=== PATIENT | female | born 1980 | race Caucasian/White ===

== ENCOUNTER 2017-09-19 21:38 | Emergency (ER) | payer BC ==
[2017-09-19 22:22] LABS: Absolute Lymphocytes (CBC) 3.9 K/uL (0.7-4.9); Absolute Monocytes 0.8 K/uL (0.1-1.3); Absolute Neutrophil 7.2 K/uL (1.8-8.0); Basophils % 0.4 % (0-1.3); Eosinophils % 1.1 % (0-4.4); Lymphocytes % 32.4 % (15.3-44.8); MCH 30.8 pg (27.0-35.0); MCV 89.6 fL (80-100); MPV 9.2 fL (7.6-11.3); Monocytes % 6.8 % (3.3-12.3); RBC Red Blood Cell Count 4.46 M/uL (3.86-4.86)
[2017-09-19 22:27] LABS: Protime INR 1.02
[2017-09-19 22:46] LABS: ALT/SGPT 26 U/L (12-78); AST/SGOT 13 U/L (15-37); Albumin 3.8 g/dL (3.4-5.0); Alkaline Phosphatase 74 U/L (45-117); BUN Blood Urea Nitrogen 10 mg/dL (7-18); Bicarbonate 24 mmol/L (21-32); Bilirubin Direct < 0.1 mg/dL (0-0.2); Bilirubin Total 0.4 mg/dL (0.2-1.0); CKMB Creatine Kinase MB < 1.0 ng/mL (0.3-3.6); Creatine Phosphokinase 31 U/L (26-192); Glucose Level 94 mg/dL (74-106); Lipase 110 U/L (73-393); Magnesium 2.2 mg/dL (1.8-2.4); NT PRO-BNP 28 pg/mL (<125); Potassium 3.6 mmol/L (3.5-5.1); Protein, Total 7.3 g/dL (6.4-8.2); Sodium Level 139 mmol/L (136-145)
--- NOTE | 2017-09-20 00:03 | EDPHYS ---
Physician Documentation [facility] Name: Kristie Alarcon Age: 36 yrs Sex: Female : 1980 Arrival Date: 09/19/2017 Time: 21:42 Bed 7 Private MD: Angel De Anda T ED Physician Jackson Dyson HPI: 09/19 22:00 This 36 yrs old Female presents to ER via Ambulatory with complaints of Chest pm1 Pain. 22:00 The patient or guardian reports chest pain that is located primarily in the xyphoid pm1 area. 22:00 The pain radiates to back. Associated signs and symptoms: Pertinent negatives: pm1 abdominal pain, cough, diaphoresis, dizziness, nausea, palpitations, shortness of breath, vomiting. The chest pain is described as aching. Duration: The patient or guardian reports multiple episodes, that have now resolved. Modifying factors: The symptoms are alleviated by nothing. the symptoms are aggravated by palpation of area. Severity of pain: in the emergency department the pain has resolved. The patient has been recently seen by a physician: carpal tunnel surgery on the . Historical: - Allergies: 21:58 No Known Allergies; aa1 - Home Meds: 21:58 None [Active]; aa1 - PMHx: 21:58 None; aa1 - PSHx: 21:58 Carpal Tunnel Repair; Cholecystectomy; surgery for ectopic ; aa1 - Immunization history:: Flu vaccine is up to date. - Social history:: Smoking status: Patient uses tobacco products, currently quitting. - Ebola Screening: : No symptoms or risks identified at this time. ROS: 22:00 Constitutional: Negative for fever, chills, and weight loss, Eyes: Negative for injury, pm1 pain, redness, and discharge, ENT: Negative for injury, pain, and discharge, Neck: Negative for injury, pain, and swelling. 22:00 Respiratory: Negative for shortness of breath, cough, wheezing, and pleuritic chest pain, Abdomen/GI: Negative for abdominal pain, nausea, vomiting, diarrhea, and constipation, Back: Negative for injury and pain, : Negative for injury, bleeding, discharge, and swelling, MS/Extremity: Negative for injury and deformity, Skin: Negative for injury, rash, and discoloration, Neuro: Negative for headache, weakness, numbness, tingling, and seizure. 22:00 Cardiovascular: Positive for chest pain, Negative for edema, orthopnea, palpitations. Exam: 22:00 Constitutional: This is a well developed, well nourished patient who is awake, alert, pm1 and in no acute distress. Head/Face: Normocephalic, atraumatic. 22:00 Cardiovascular: Regular rate and rhythm with a normal S1 and S2. No gallops, murmurs, or rubs. Normal PMI, no JVD. No pulse deficits. Respiratory: Lungs have equal breath sounds bilaterally, clear to auscultation and percussion. No rales, rhonchi or wheezes noted. No increased work of breathing, no retractions or nasal flaring. Abdomen/GI: Soft, non-tender, with normal bowel sounds. No distension or tympany. No guarding or rebound. No evidence of tenderness throughout. Back: No spinal tenderness. No costovertebral tenderness. Full range of motion. Skin: Warm, dry with normal turgor. Normal color with no rashes, no lesions, and no evidence of cellulitis. MS/ Extremity: Pulses equal, no cyanosis. Neurovascular intact. Full, normal range of motion. 22:00 Chest/axilla: Inspection: normal, Palpation: tenderness, that is mild, of the xyphoid area, that totally reproduces the patient's complaints. 22:00 Neuro: Orientation: is normal, Motor: moves all fours. Vital Signs: 21:58 BP 146 / 87; Pulse 78; Resp 16; Temp 98.7(O); Pulse Ox 99% on R/A; Weight 56.7 kg; aa1 Height 5 ft. 2 in. (157.48 cm); Pain 0/10; 22:46 Pulse 88; Resp 18; Pulse Ox 98% on R/A; tl2 09/20 00:00 BP 126 / 89; Pulse 75; Resp 16; Pulse Ox 99% on R/A; Pain 0/10; lp1 09/19 21:58 Body Mass Index 22.86 (56.70 kg, 157.48 cm) aa1 MDM: 09/19 21:47 Patient medically screened. pm1 22:00 ED course: Patient refused pain medications offered. pm1 09/20 00:02 Data reviewed: vital signs. pm1 00:02 Counseling: I had a detailed discussion with the patient and/or guardian regarding: the pm1 historical points, exam findings, and any diagnostic results supporting the discharge/admit diagnosis, lab results, radiology results, the need for outpatient follow up, to return to the emergency department if symptoms worsen or persist or if there are any questions or concerns that arise at home, smoking cessation. 09/19 21:58 Order name: Basic Metabolic Panel; Complete Time: 22:56 pm09/19 21:58 Order name: CBC with Diff; Complete Time: 22:37 pm09/19 21:58 Order name: Ckmb; Complete Time: 22:56 pm09/19 21:58 Order name: CPK; Complete Time: 22:56 pm09/19 21:58 Order name: LFT's; Complete Time: 22:56 pm09/19 21:58 Order name: Magnesium; Complete Time: 22:56 pm09/19 21:58 Order name: NT PRO-BNP; Complete Time: 22:56 pm09/19 21:58 Order name: PT-INR; Complete Time: 22:37 pm09/19 21:58 Order name: Ptt, Activated; Complete Time: 22:37 pm09/19 21:58 Order name: Troponin (emerg Dept Use Only); Complete Time: 22:56 pm09/19 21:58 Order name: D-Dimer; Complete Time: 22:37 pm09/19 22:22 Order name: Lipase; Complete Time: 22:56 EDDE 09/20 00:03 Order name: Urine Dipstick--Ancillary (enter results) ms 09/19 21:58 Order name: Urine Test (obtain specimen); Complete Time: 23:55 pm09/19 21:58 Order name: XRAY Chest (1 view) pm09/19 21:58 Order name: EKG; Complete Time: 21:58 pm09/19 21:58 Order name: Cardiac monitoring; Complete Time: 22:14 pm09/19 21:58 Order name: EKG - Nurse/Tech; Complete Time: 22:14 pm09/19 21:58 Order name: IV Saline Lock; Complete Time: 22:01 pm09/19 21:58 Order name: Labs collected and sent; Complete Time: 22:01 pm09/19 21:58 Order name: O2 Per Protocol; Complete Time: 22:01 pm1 09/19 21:58 Order name: O2 Sat Monitoring; Complete Time: 22:01 pm1 09/19 21:58 Order name: Urine Dipstick-Ancillary (obtain specimen); Complete Time: 23:55 pm1 09/20 00:05 Order name: Urine --Ancillary (enter results) ms Administered Medications: No medications were administered Disposition: 09/20/17 00:02 Discharged to Home. Impression: Chest pain, unspecified. - Condition is Stable. - Discharge Instructions: Nonspecific Chest Pain. - Medication Reconciliation Form, Thank You Letter, Antibiotic Education, Prescription Opioid Use form. - Follow up: Emergency Department; When: As needed; Reason: Worsening of condition. Follow up: Private Physician; When: 2 - 3 days; Reason: Recheck today's complaints, Continuance of care, Re-evaluation by your physician. - Problem is new. - Symptoms have improved. Addendum: 09/21/2017 10:38 Co-signature as Attending Physician, Jackson Dyson MD I agree with the assessment and c kidd plan of care. Signatures: Dispatcher [employer] [facility] Usha Lord RN RN aa1 Jackson Dyson MD MD cha Pena, Laura, RN RN lp1 Francis Ruelas NP MANAGER FITNESS pm1 Corrections: (The following items were deleted from the chart) 09/19 22:21 22:06 LIPASE+C.LAB.BRZ ordered. [facility] 09/20 00:12 00:02 09/20/2017 00:02 Discharged to Home. Impression: Chest pain, unspecified. lp1 Condition is Stable. Discharge Instructions: Nonspecific Chest Pain. Forms are Medication Reconciliation Form, Thank You Letter, Antibiotic Education, Prescription Opioid Use. Follow up: Emergency Department; When: As needed; Reason: Worsening of condition. Follow up: Private Physician; When: 2 - 3 days; Reason: Recheck today's complaints, Continuance of care, Re-evaluation by your physician. Problem is new. Symptoms have improved. pm1
--- NOTE | 2017-09-20 00:03 | ER ---
Nurse's Notes [facility] Name: Kristie Alarcon Age: 36 yrs Sex: Female : 1980 Arrival Date: 09/19/2017 Time: 21:42 Bed 7 Private MD: Angel De Anda T Diagnosis: Chest pain, unspecified Presentation: 09/19 21:51 Presenting complaint: Patient states: she has been having int epigastric pain that aa1 radiates to back x 4 days. Reports pain is a sharp pain that is worse with deep inspiration. States she recently quit smoking and she also had carpal tunnel repair done 5 days ago and is unsure if either of those are related. Transition of care: patient was not received from another setting of care. Onset of symptoms was September 15, 2017. Risk Assessment: Do you want to hurt yourself or someone else? Patient reports no desire to harm self or others. Initial Sepsis Screen: Does the patient meet any 2 criteria? No. Patient's initial sepsis screen is negative. Does the patient have a suspected source of infection? No. Patient's initial sepsis screen is negative. Care prior to arrival: None. 21:51 Method Of Arrival: Ambulatory aa1 21:51 Acuity: FABIANA 3 aa1 Triage Assessment: 21:58 General: Appears in no apparent distress. comfortable, Behavior is calm, cooperative, aa1 appropriate for age. Historical: - Allergies: 21:58 No Known Allergies; aa1 - Home Meds: 21:58 None [Active]; aa1 - PMHx: 21:58 None; aa1 - PSHx: 21:58 Carpal Tunnel Repair; Cholecystectomy; surgery for ectopic ; aa1 - Immunization history:: Flu vaccine is up to date. - Social history:: Smoking status: Patient uses tobacco products, currently quitting. - Ebola Screening: : No symptoms or risks identified at this time. Screenin:51 Abuse screen: Denies threats or abuse. Denies injuries from another. Nutritional lp1 screening: No deficits noted. Tuberculosis screening: No symptoms or risk factors identified. Fall Risk None identified. Assessment: 21:50 General: Appears in no apparent distress. Behavior is calm, cooperative, appropriate lp1 for age. Pain: Complains of pain in epigastric area Pain currently is 5 out of 10 on a pain scale. Quality of pain is described as aching. Neuro: Level of Consciousness is awake, alert, obeys commands. Cardiovascular: Patient's skin is warm and dry. Respiratory: Respiratory effort is even, unlabored, Breath sounds are clear bilaterally. GI: Abdomen is non-distended, Bowel sounds present X 4 quads. Abd is soft and non tender X 4 quads. : No signs and/or symptoms were reported regarding the genitourinary system. EENT: No signs and/or symptoms were reported regarding the EENT system. Derm: Skin is pink, warm \T\ dry. Musculoskeletal: Circulation, motion, and sensation intact. 22:46 Reassessment: Patient appears in no apparent distress at this time. Patient and/or tl2 family updated on plan of care and expected duration. Pain level reassessed. Patient is alert, oriented x 3, equal unlabored respirations, skin warm/dry/pink. Pt denies needing any pain medication. awaiting lab results. 23:45 Reassessment: Patient appears in no apparent distress at this time. Patient is alert, lp1 oriented x 3, equal unlabored respirations, skin warm/dry/pink. Patient states feeling better. Vital Signs: 21:58 BP 146 / 87; Pulse 78; Resp 16; Temp 98.7(O); Pulse Ox 99% on R/A; Weight 56.7 kg; aa1 Height 5 ft. 2 in. (157.48 cm); Pain 0/10; 22:46 Pulse 88; Resp 18; Pulse Ox 98% on R/A; tl2 09/20 00:00 BP 126 / 89; Pulse 75; Resp 16; Pulse Ox 99% on R/A; Pain 0/10; lp1 09/19 21:58 Body Mass Index 22.86 (56.70 kg, 157.48 cm) aa1 ED Course: 09/19 21:42 Patient arrived in ED. es 21:42 Angel De Anda MD is Private Physician. es 21:46 Francis Ruelas NP is PHCP. pm1 21:47 Jackson Dyson MD is Attending Physician. pm1 21:50 Bushra Ballard RN is Primary Nurse. lp1 21:51 Patient has correct armband on for positive identification. Placed in gown. Bed in low lp1 position. Pulse ox on. NIBP on. 21:56 Triage completed. aa1 21:58 Arm band placed on right wrist. Patient placed in an exam room, on a stretcher. aa1 22:00 Inserted saline lock: 20 gauge in left antecubital area, using aseptic technique. Blood tl2 collected. 22:17 Initial lab(s) drawn, by me, sent to lab. EKG done, by ED staff, reviewed by Francis Ruelas NP. 22:32 XRAY Chest (1 view) In Process Unspecified. EDMS 09/20 00:04 No provider procedures requiring assistance completed. IV discontinued, No lp1 redness/swelling at site. Pressure dressing applied. Administered Medications: No medications were administered Outcome: 00:02 Discharge ordered by MD. pm1 00:11 Discharged to home ambulatory. lp1 00:11 Condition: good 00:11 Discharge instructions given to patient, Instructed on discharge instructions, follow up and referral plans. Demonstrated understanding of instructions, follow-up care. 00:12 Patient left the ED. lp1 Signatures: Dispatcher [employer] EDSD Usha Lord, RN RN aa1 Sayra Monique Laura RN RN lp1 Francis Ruelas NP INCUBATOR OPERATOR pm1 Eulalia Hayes RN RN tl2
[2017-09-20 00:08] LABS: Urine Specific Gravity >1.030 (1.005-1.030)
[2017-09-20 00:08] LABS: Urine Blood NEGATIVE (NEG); Urine Glucose NEGATIVE (NEG); Urine Protein NEGATIVE (NEG); Urine Specific Gravity >1.030 (1.005-1.030)
--- NOTE | 2017-09-20 07:39 | RAD REPORT ---
EXAM DESCRIPTION: RAD - Chest Single View - 09/19/2017 10:32 pm CLINICAL HISTORY: Back pain, chest pain COMPARISON: October 2013 TECHNIQUE: AP portable chest image was obtained 2222 hours . FINDINGS: Lungs are clear. Heart and vasculature are normal. No measurable pleural effusion and no p neumothorax. No gross bony abnormality seen. No acute aortic findings suspected. IMPRESSION: No acute cardiopulmonary process. No significant interval change.
--- NOTE | 2017-09-20 09:31 | EKG ---
Test Date: 2017-09-19 Test Time: 22:09:09 City Manager: CARRIE MEASUREMENT RESULTS: Intervals: Rate: 73 SD: 130 QRSD: 82 QT: 388 QTc: 427 [place]: P: 24 SD: 130 QRS: 14 T: 16 INTERPRETIVE STATEMENTS: Normal sinus rhythm Normal ECG Compared to ECG 11/05/2008 16:55:08 No significant changes Electronically Signed On 09-20-17 09:30:36 CDT by Nathan Encarnacion
== END 2017-09-20 00:12 | disposition home or self-care (01) ==
LOC: ER 21:38
DX: R07.9 Chest pain, unspecified (principal)
CPT/HCPCS: 36415; 71045; 80048; 80076; 81003; 81025; 82550; 82553; 83690; 83735; 83880; 84484; 85025; 85379; 85610; 85730; 93005; 99284

== ENCOUNTER 2018-10-03 12:03 | Emergency (ER) | payer BC ==
[2018-10-03] MEDS ORDERED: KETOROLAC 30 MG/ML INJ ONE (12:25)
[2018-10-03] MEDS ORDERED: ONDANSETRON 4 MG/2 ML VIAL ONE (12:25)
[2018-10-03] MEDS ORDERED: MORPHINE 4 MG/ML SYR ONE ×2 (12:25→13:43)
[2018-10-03] MEDS ORDERED: NA CHLORIDE 0.9% 1,000 ML ONE ×2 (12:26→13:43)
[2018-10-03 12:34] LABS: Absolute Lymphocytes (CBC) 2.7 K/uL (0.7-4.9); Basophils % 0.4 % (0-1.3); Hematocrit 42.7 % (36.0-45.0); Lymphocytes % 15.6 % (15.3-44.8); MPV 9.2 fL (7.6-11.3); RBC Red Blood Cell Count 4.69 M/uL (3.86-4.86)
[2018-10-03] MEDS ORDERED: CEFTRIAXONE/SWI 1gm 1 GM/10 ML SYR ONE (12:40)
[2018-10-03 12:41] LABS: Urine Blood 3+ (NEG); Urine Glucose NEGATIVE (NEG); Urine Protein 2+ (NEG); Urine Specific Gravity 1.015 (1.005-1.030); Urine pH 6.5 (5.0-7.0)
[2018-10-03 12:56] LABS: Albumin 4.2 g/dL (3.4-5.0); Bilirubin Direct 0.2 mg/dL (0-0.2); Bilirubin Total 0.8 mg/dL (0.2-1.0); Potassium 4.5 mmol/L (3.5-5.1)
--- NOTE | 2018-10-03 13:07 | RAD REPORT ---
EXAM DESCRIPTION: CT - Stone Protocol - 10/03/2018 12:46 pm CLINICAL HISTORY: Dysuria, left flank pain, chills and nausea COMPARISON: None. TECHNIQUE: Axial 5 mm thick images were obtained without oral or IV contrast. The [id number] span s the entirety of the system partially obscuring uppermost abdomen and lung bases. All CT scans are performed using dose optimization technique as appropriate and may include automated exposure control or mA/KV adjustment according to patient size. FINDINGS: No obstructing or nonobstructing calculi seen. There is mild dilatation of the left ureter in pelvis. Avalos of the ureter appear slightly thickened and there is a minimal amount of stranding along the course of the left ureter. No suspicious renal masses. Isodense masses and pyelonephritis a re not excluded on a stone protocol CT scan. Urinary bladder is contracted limiting detail. No bladde r calculus seen. No significant adrenal finding. Uterus and right ovary show no significant finding. Left ovary contains a 2.3 centimeter cyst. Imaged portions of the liver, spleen and pancreas show no suspicious findings on non-contrast imaging . Cholecystectomy clips are present. No biliary tree dilatation. No suspicious bowel findings. No appendicitis. No hernia, mass or bulky lymphadenopathy noted. Physiologic quantity of free fluid is seen in the cul de sac. No significant bony abnormality. IMPRESSION: Mild dilatation of the left ureter with edema and stranding present. Finding could refle ct a recently passed stone. Blood and inflammatory debris and ureter can cause dilatation. Ureteritis and pyelonephritis are certainly possible on a noncontrast study.
--- NOTE | 2018-10-03 13:33 | ER ---
Nurse's Notes [facility] Name: Kristie Alarcon Age: 37 yrs Sex: Female : 1980 Arrival Date: 10/03/2018 Time: 12:07 Bed 17 Private MD: Diagnosis: Hydronephrosis with renal and ureteral calculous obstruction;Other ovarian cysts Presentation: 10/03 12:21 Presenting complaint: Patient states: urinary frequency yesterday, left flank pain X 2 iw hours, c/o chills and nausea. Transition of care: patient was not received from another setting of care. Onset of symptoms was October 03, 2018. Risk Assessment: Do you want to hurt yourself or someone else? Patient reports no desire to harm self or others. Initial Sepsis Screen: Does the patient meet any 2 criteria? No. Patient's initial sepsis screen is negative. Does the patient have a suspected source of infection? No. Patient's initial sepsis screen is negative. Care prior to arrival: None. 12:21 Method Of Arrival: Ambulatory iw 12:21 Acuity: FABIANA 3 iw MILLWRIGHT SUPERVISOR: 12:23 LMP 09/21/2018 iw Historical: - Allergies: 12:23 No Known Allergies; iw - Home Meds: 12:23 None [Active]; iw - PMHx: 12:23 None; iw - PSHx: 12:23 Carpal Tunnel Repair; iw - Social history:: Smoking status: . - Ebola Screening: : Patient negative for fever greater than or equal to 101.5 degrees Fahrenheit, and additional compatible Ebola Virus Disease symptoms Patient denies exposure to infectious person Patient denies travel to an Ebola-affected area in the 21 days before illness onset No symptoms or risks identified at this time. - Family history:: not pertinent. Screenin:20 Abuse screen: Denies threats or abuse. Nutritional screening: No deficits noted. em Tuberculosis screening: No symptoms or risk factors identified. Fall Risk None identified. Assessment: 12:20 General: Appears in no apparent distress. uncomfortable, well groomed, well developed, em well nourished, Behavior is cooperative, restless, Denies fever. Pain: Complains of pain in posterior aspect of left lateral abdomen Pain radiates to left low back Pain currently is 10 out of 10 on a pain scale. Quality of pain is described as sharp, shooting, Pain began 1 day ago. Neuro: Level of Consciousness is awake, alert, obeys commands, Oriented to person, place, time, situation. Cardiovascular: Capillary refill < 3 seconds Patient's skin is warm and dry. Respiratory: Airway is patent Respiratory effort is even, unlabored, Respiratory pattern is regular, symmetrical. GI: Abdomen is flat, Bowel sounds present X 4 quads. Abd is soft and non tender X 4 quads. : Reports burning with urination. Derm: Skin is intact, is healthy with good turgor, Skin is pink, warm \T\ dry. Musculoskeletal: Capillary refill < 3 seconds, Range of motion: intact in all extremities. 13:03 Reassessment: Patient appears in no apparent distress at this time. Patient and/or em family updated on plan of care and expected duration. Pain level reassessed. Patient is alert, oriented x 3, equal unlabored respirations, skin warm/dry/pink. rates pain 4/10 Patient states feeling better. Patient states symptoms have improved. 13:30 Reassessment: reports pain is 8/10, provider notified, new medication orders received, em will hold flomax and cipro until US results per MD order. 15:04 Reassessment: Patient appears in no apparent distress at this time. Patient and/or em family updated on plan of care and expected duration. Pain level reassessed. Patient is alert, oriented x 3, equal unlabored respirations, skin warm/dry/pink. rates pain 4/10. 16:01 Reassessment: Patient appears in no apparent distress at this time. Patient and/or em family updated on plan of care and expected duration. Pain level reassessed. Patient is alert, oriented x 3, equal unlabored respirations, skin warm/dry/pink. rates pain 3/10. Vital Signs: 12:20 BP 150 / 100; Pulse 94; Resp 18; Temp 98.2; Pulse Ox 97% on R/A; Pain 10/10; em 13:07 BP 153 / 93; Pulse 81; Resp 16; Pulse Ox 100% on R/A; Pain 4/10; em 14:30 BP 130 / 88; Pulse 86; Resp 18; Pulse Ox 99% on R/A; Pain 8/10; em ED Course: 12:04 Jackson Dyson MD is Attending Physician. demetria 12:07 Patient arrived in ED. as 12:16 Lawson Navarro LVN is Primary Nurse. em 12:20 Patient has correct armband on for positive identification. Bed in low position. Call em light in reach. Adult w/ patient. Pulse ox on. NIBP on. 12:20 Initial lab(s) drawn, by me, sent to lab. Inserted saline lock: 22 gauge in right em antecubital area, using aseptic technique. Blood collected. 12:21 Radiology exam delayed due to test not completed at this time. mw3 12:22 Triage completed. iw 12:23 Arm band placed on. iw 12:33 Urine collected: clean catch specimen, cloudy, mateo colored. jb1 12:45 CT completed. Patient tolerated procedure well. Patient moved back from CT. mw3 12:46 CT Stone Protocol In Process Unspecified. EDMS 13:31 Livia Hickey MD is Referral Physician. demetria 14:40 Ultrasound completed. Patient tolerated well. sg3 14:42 US Transvaginal Study (Probe) In Process Unspecified. EDMS 16:00 No provider procedures requiring assistance completed. em 16:00 IV discontinued, intact, bleeding controlled, No redness/swelling at site. Pressure em dressing applied. Administered Medications: 12:30 Drug: Zofran 4 mg Route: IVP; Site: right antecubital; iw 13:06 Follow up: Response: No adverse reaction; Nausea is decreased em 12:32 Drug: NS 0.9% 1000 ml Route: IV; Rate: 1 bolus; Site: right antecubital; iw 13:51 Follow up: IV Status: Completed infusion; IV Intake: 1000ml em 12:32 Drug: TORadol 30 mg Route: IVP; Site: right antecubital; iw 13:06 Follow up: Response: No adverse reaction; Pain is decreased em 12:32 Drug: morphine 4 mg Route: IVP; Site: right antecubital; iw 13:06 Follow up: Response: No adverse reaction; Pain is decreased em 13:34 Drug: Rocephin 1 grams Route: IV; Rate: per protocol; Site: right antecubital; iw 15:05 Follow up: Response: No adverse reaction; IV Status: Completed infusion; IV Intake: 10mlem 13:50 Drug: morphine 4 mg Route: IVP; Site: right antecubital; em 15:06 Follow up: Response: No adverse reaction; Pain is decreased; RASS: Alert and Calm (0) em 13:51 Drug: NS 0.9% 1000 ml Route: IV; Rate: 1 bolus; Site: right antecubital; em 15:05 Follow up: IV Status: Completed infusion; IV Intake: 1000ml em 15:38 Drug: Cipro 500 mg Route: PO; em 16:01 Follow up: Response: No adverse reaction em 15:38 Drug: Flomax 0.4 mg Route: PO; em 16:01 Follow up: Response: No adverse reaction em Intake: 13:51 IV: 1000ml; Total: 1000ml. em 15:05 IV: 1000ml; Total: 2000ml. em 15:05 IV: 10ml; Total: 2010ml. em Outcome: 13:31 Discharge ordered by . [facility] 16:00 Discharged to home ambulatory, with family. em 16:00 Condition: good 16:00 Discharge instructions given to patient, family, Instructed on discharge instructions, follow up and referral plans. no drinking with medication, medication usage, Demonstrated understanding of instructions, follow-up care, medications, Prescriptions given X 4. 16:02 Patient left the ED. em Signatures: Dispatcher [employer] EDMS Rolan Soares jb1 Jackson Dyson MD MD cha Munoz, Edgar, WINE AND SPIRITS CLERK WINE AND SPIRITS CLERK Dionne Crews Irene, Ela Kwon RN 3 Vicky Justice mw3 Corrections: (The following items were deleted from the chart) 13:25 12:20 Pain: Complains of pain in posterior aspect of right lateral abdomen Pain em radiates to right low back Pain currently is 10 out of 10 on a pain scale. Quality of pain is described as sharp, shooting, Pain began 1 day ago. em 15:06 15:05 Response: No adverse reaction; Pain is decreased em em 16: 16:00 Patient did not have IV access during this emergency room visit. em em 16: 12:20 BP 150 / 100; Pulse 94bpm; Resp 18bpm; Pulse Ox 97% RA; Pain 10/10; em em
--- NOTE | 2018-10-03 13:33 | EDPHYS ---
Physician Documentation [facility] Name: Kristie Alarcon Age: 37 yrs Sex: Female : 1980 Arrival Date: 10/03/2018 Time: 12:07 Bed 17 Private MD: ED Physician Jackson Dyson HPI: 10/03 13:28 This 37 yrs old Female presents to ER via Ambulatory with complaints of demetria Possible Kidney Stone. 13:28 The patient complains of pain in the left low back and left mid back. The pain radiates demetria to the left low back and left mid back. Onset: The symptoms/episode began/occurred just prior to arrival. Modifying factors: The symptoms are alleviated by nothing. the symptoms are aggravated by nothing. The patient presents with pain that is acute. The symptoms are located in the left low back and left mid back. Onset: The symptoms/episode began/occurred just prior to arrival. Location: left low back and left mid back. Modifying factors: The patient symptoms are alleviated by nothing, the patient symptoms are aggravated by nothing. 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 - Ebola Screening: : Patient negative for fever greater than or equal to 101.5 degrees Fahrenheit, and additional compatible Ebola Virus Disease symptoms Patient denies exposure to infectious person Patient denies travel to an Ebola-affected area in the 21 days before illness onset No symptoms or risks identified at this time. - Family history:: not pertinent. ROS: 13:28 Constitutional: Negative for fever, chills, and weight loss, Eyes: Negative for injury, demetria pain, redness, and discharge, ENT: Negative for injury, pain, and discharge, Neck: Negative for injury, pain, and swelling, Cardiovascular: Negative for chest pain, palpitations, and edema, Respiratory: Negative for shortness of breath, cough, wheezing, and pleuritic chest pain, Abdomen/GI: Negative for abdominal pain, nausea, vomiting, diarrhea, and constipation, : Negative for injury, bleeding, discharge, and swelling, MS/Extremity: Negative for injury and deformity, Skin: Negative for injury, rash, and discoloration, Neuro: Negative for headache, weakness, numbness, tingling, and seizure, Psych: Negative for depression, anxiety, suicide ideation, homicidal ideation, and hallucinations, Allergy/Immunology: Negative for hives, rash, and allergies, Endocrine: Negative for neck swelling, polydipsia, polyuria, polyphagia, and marked weight changes, Hematologic/Lymphatic: Negative for swollen nodes, abnormal bleeding, and unusual bruising. 13:28 Back: Positive for pain at rest. Exam: 13:28 Constitutional: This is a well developed, well nourished patient who is awake, alert, demetria and in no acute distress. Head/Face: Normocephalic, atraumatic. Eyes: Pupils equal round and reactive to light, extra-ocular motions intact. Lids and lashes normal. Conjunctiva and sclera are non-icteric and not injected. Cornea within normal limits. Periorbital areas with no swelling, redness, or edema. ENT: Nares patent. No nasal discharge, no septal abnormalities noted. Tympanic membranes are normal and external auditory canals are clear. Oropharynx with no redness, swelling, or masses, exudates, or evidence of obstruction, uvula midline. Mucous membranes moist. Neck: Trachea midline, no thyromegaly or masses palpated, and no cervical lymphadenopathy. Supple, full range of motion without nuchal rigidity, or vertebral point tenderness. No Meningismus. Chest/axilla: Normal chest wall appearance and motion. Nontender with no deformity. No lesions are appreciated. Cardiovascular: Regular rate and rhythm with a normal S1 and S2. No gallops, murmurs, or rubs. Normal PMI, no JVD. No pulse deficits. Respiratory: Lungs have equal breath sounds bilaterally, clear to auscultation and percussion. No rales, rhonchi or wheezes noted. No increased work of breathing, no retractions or nasal flaring. Back: No spinal tenderness. No costovertebral tenderness. Full range of motion. Skin: Warm, dry with normal turgor. Normal color with no rashes, no lesions, and no evidence of cellulitis. MS/ Extremity: Pulses equal, no cyanosis. Neurovascular intact. Full, normal range of motion. Neuro: Awake and alert, GCS 15, oriented to person, place, time, and situation. Cranial nerves II-XII grossly intact. Motor strength 5/5 in all extremities. Sensory grossly intact. Cerebellar exam normal. Normal gait. 13:28 Abdomen/GI: Inspection: abdomen appears normal, Bowel sounds: normal, Palpation: mild abdominal tenderness, Liver: no appreciated palpable abnormalities, Hernia: not appreciated. Vital Signs: 12:20 BP 150 / 100; Pulse 94; Resp 18; Temp 98.2; Pulse Ox 97% on R/A; Pain 10/10; em 13:07 BP 153 / 93; Pulse 81; Resp 16; Pulse Ox 100% on R/A; Pain 4/10; em 14:30 BP 130 / 88; Pulse 86; Resp 18; Pulse Ox 99% on R/A; Pain 8/10; em MDM: 12:14 Patient medically screened. [facility] 13:31 Data reviewed: vital signs, nurses notes, lab test result(s), radiologic studies, CT demetria scan. 10/03 12:16 Order name: Basic Metabolic Panel; Complete Time: 13:23 [facility] 10/03 12:16 Order name: CBC with Diff; Complete Time: 12:43 [facility] 10/03 12:16 Order name: Creatinine for Radiology; Complete Time: 13:23 [facility] 10/03 12:16 Order name: Hepatic Function; Complete Time: 13:23 [facility] 10/03 12:16 Order name: Lipase; Complete Time: 13:23 [facility] 10/03 12:16 Order name: Urine Culture [facility] 10/03 12:17 Order name: CT Stone Protocol; Complete Time: 13:23 [facility] 10/03 12:36 Order name: Urine Dipstick--Ancillary (enter results); Complete Time: 12:43 [facility] 10/03 12:36 Order name: Urine --Ancillary (enter results); Complete Time: 12:43 [facility] 10/03 13:35 Order name: US Transvaginal Study (Probe) [facility] 10/03 12:16 Order name: IV Saline Lock; Complete Time: 12:33 [facility] 10/03 12:16 Order name: Labs collected and sent; Complete Time: 12:33 [facility] 10/03 12:16 Order name: Urine Dipstick-Ancillary (obtain specimen); Complete Time: 12:33 [facility] 10/03 12:16 Order name: Urine Test (obtain specimen); Complete Time: 12:33 demetria Administered Medications: 12:30 Drug: Zofran 4 mg Route: IVP; Site: right antecubital; iw 13:06 Follow up: Response: No adverse reaction; Nausea is decreased em 12:32 Drug: NS 0.9% 1000 ml Route: IV; Rate: 1 bolus; Site: right antecubital; iw 13:51 Follow up: IV Status: Completed infusion; IV Intake: 1000ml em 12:32 Drug: TORadol 30 mg Route: IVP; Site: right antecubital; iw 13:06 Follow up: Response: No adverse reaction; Pain is decreased em 12:32 Drug: morphine 4 mg Route: IVP; Site: right antecubital; iw 13:06 Follow up: Response: No adverse reaction; Pain is decreased em 13:34 Drug: Rocephin 1 grams Route: IV; Rate: per protocol; Site: right antecubital; iw 15:05 Follow up: Response: No adverse reaction; IV Status: Completed infusion; IV Intake: 10mlem 13:50 Drug: morphine 4 mg Route: IVP; Site: right antecubital; em 15:06 Follow up: Response: No adverse reaction; Pain is decreased; RASS: Alert and Calm (0) em 13:51 Drug: NS 0.9% 1000 ml Route: IV; Rate: 1 bolus; Site: right antecubital; em 15:05 Follow up: IV Status: Completed infusion; IV Intake: 1000ml em 15:38 Drug: Cipro 500 mg Route: PO; em 16:01 Follow up: Response: No adverse reaction em 15:38 Drug: Flomax 0.4 mg Route: PO; em 16:01 Follow up: Response: No adverse reaction em Disposition: 10/03/18 13:31 Discharged to Home. Impression: Hydronephrosis with renal and ureteral calculous obstruction, Other ovarian cysts. - Condition is Stable. - Discharge Instructions: Kidney Stones, Ovarian Cyst, Kidney Stones, [id number], Hydronephrosis, Ovarian Cyst, [id number], Dietary Guidelines to Help Prevent Kidney Stones. - Prescriptions for Tylenol- Codeine #3 300-30 mg Oral Tablet - take 2 tablet by ORAL route every 6 hours As needed; 30 tablet. Zofran 4 mg Oral Tablet - take 1 tablet by ORAL route every 12 hours As needed; 20 tablet. Flomax 0.4 mg Oral Capsule, Sust. Release 24 hr - take 1 capsule by ORAL route once daily 1/2 hour following the same meal each day; 30 capsule. Cipro 500 mg Oral Tablet - take 1 tablet by ORAL route every 12 hours for 7 days; 14 tablet. - Medication Reconciliation Form, Thank You Letter, Antibiotic Education, Prescription Opioid Use form. - Follow up: Private Physician; When: 2 - 3 days; Reason: Recheck today's complaints, Continuance of care, Re-evaluation by your physician. Follow up: Livia Hickey; When: 2 - 3 days; Reason: Recheck today's complaints, Re-evaluation by your physician. - Problem is new. - Symptoms have improved. Signatures: Dispatcher [employer] Jackson Peng MD MD cha Munoz, Edgar, A/C TECH A/C TECH Dacia Swenson RN RN Suzette Falherty MD MD [id number] Corrections: (The following items were deleted from the chart) 13:32 13:31 10/03/2018 13:31 Discharged to Home. Impression: Hydronephrosis with renal and demetria ureteral calculous obstruction. Condition is Stable. Discharge Instructions: Kidney Stones, Kidney Stones, [id number], Hydronephrosis, Dietary Guidelines to Help Prevent Kidney Stones. Prescriptions for Tylenol-Codeine #3 300-30 mg Oral Tablet - take 2 tablet by ORAL route every 6 hours As needed; 30 tablet, Zofran 4 mg Oral Tablet - take 1 tablet by ORAL route every 12 hours As needed; 20 tablet, Flomax 0.4 mg Oral Capsule, Sust. Release 24 hr - take 1 capsule by ORAL route once daily 1/2 hour following the same meal each day; 30 capsule, Cipro 500 mg Oral Tablet - take 1 tablet by ORAL route every 12 hours for 7 days; 14 tablet. and Forms are Medication Reconciliation Form, Thank You Letter, Antibiotic Education, Prescription Opioid Use. Follow up: Private Physician; When: 2 - 3 days; Reason: Recheck today's complaints, Continuance of care, Re-evaluation by your physician. Follow up: Livia Hickey; When: 2 - 3 days; Reason: Recheck today's complaints, Re-evaluation by your physician. Problem is new. Symptoms have improved. [facility] 16:02 13:32 10/03/2018 13:31 Discharged to Home. Impression: Hydronephrosis with renal and em ureteral calculous obstruction; Other ovarian cysts. Condition is Stable. Discharge Instructions: Kidney Stones, Kidney Stones, [id number], Hydronephrosis, Dietary Guidelines to Help Prevent Kidney Stones. Prescriptions for Tylenol-Codeine #3 300-30 mg Oral Tablet - take 2 tablet by ORAL route every 6 hours As needed; 30 tablet, Zofran 4 mg Oral Tablet - take 1 tablet by ORAL route every 12 hours As needed; 20 tablet, Flomax 0.4 mg Oral Capsule, Sust. Release 24 hr - take 1 capsule by ORAL route once daily 1/2 hour following the same meal each day; 30 capsule, Cipro 500 mg Oral Tablet - take 1 tablet by ORAL route every 12 hours for 7 days; 14 tablet. and Forms are Medication Reconciliation Form, Thank You Letter, Antibiotic Education, Prescription Opioid Use. Follow up: Private Physician; When: 2 - 3 days; Reason: Recheck today's complaints, Continuance of care, Re-evaluation by your physician. Follow up: Livia Hickey; When: 2 - 3 days; Reason: Recheck today's complaints, Re-evaluation by your physician. Problem is new. Symptoms have improved. demetria
[2018-10-03] MEDS ORDERED: CIPROFLOXACIN HCL 500 MG TAB ONE (13:42)
[2018-10-03] MEDS ORDERED: TAMSULOSIN 0.4 MG SR CAP ONE (13:43)
--- NOTE | 2018-10-03 15:18 | RAD REPORT ---
EXAM DESCRIPTION: US - Transvaginal Study Probe - 10/03/2018 2:42 pm CLINICAL HISTORY: Abdominal pain, pelvic pain, abnormal CT COMPARISON: CT stone protocol study October 03 TECHNIQUE: Endovaginal sonography was performed. FINDINGS: Endometrial stripe is 6-7 mm with no focal endometrial abnormality. No myometrial mass. Ut erus is normal in size measuring 7.7 x 3.3 x 4.7 cm. Trace amount of free fluid in the cul de sac is well within physiologic limits for the patient's age. Both ovaries are identified. Doppler evaluation shows normal blood flow within the ovarian stroma. A 2.4 centimeter anechoic left ovarian cyst is present not regarded as significant. No worrisome solid or cystic ovarian or adnexal finding. Fallopian tube dilatation. IMPRESSION: Approximately 2.4 cm benign-appearing anechoic left ovarian cyst. Exam is otherwise unremarkable.
== END 2018-10-03 16:02 | disposition home or self-care (01) ==
LOC: ER 12:03
DX: N13.2 Hydronephrosis with renal and ureteral calculous obstruction (principal); N83.299 Other ovarian cyst, unspecified side
CPT/HCPCS: 96365; 96361; 87088; 85025; 87086; 80048; 36415; 81025; 80076; 87077; 87186; 81003; 83690; 76377; 74176; 76830; 96375; 99284; 96366; J0696; J7030 ×2; J2405

== ENCOUNTER 2022-11-01 20:33 | Emergency (ER) | payer BC ==
--- OUTSIDE RECORDS SUMMARY | 2022-11-01 20:36 | XMS REPORT | Continuity of Care Document ---
:[address] [facility] t Address [address] [place] [address] [address] [place] [address] Care Team Providers Name Role Phone JOSE ANN Attending Clinician Unavailable Geneva Attending Clinician Unavailable Devin Attending Clinician Unavailable Lyly Attending Clinician Unavailable Abimael Ricardo Attending Clinician [phone] German Fox Attending Clinician [phone] Abimael Ricardo Attending Clinician Unavailable Geneva Admitting Clinician Unavailable Devin Admitting Clinician Unavailable Lyly Admitting Clinician Unavailable KNOW, DOES_NOT Admitting Clinician Unavailable Payers Payer Name Policy Type Policy Number Effective Date Expiration Date S fabiano [facility] [place] [id number] 2022 AND OUT OF 00:00:00 [place] [facility] [id number] 2020 2023 00:00: 00 [place] (PPO) 00:00:00 Problems Condition Condition Condition Status Onset Resolution Last Treating Co mments Source Name Details Category Date Date Treatment Clinician Date Ulnar Ulnar Problem Active [facility] nerve Nerve - Orthope entrapment Entrapment 00:00: di c at wrist at Wrist 00 Sports Medicin e Ganglion Ganglion Problem Active Azale a cyst of Cyst of - Orthope right Right 00:00: dic dorsal Dorsal 00 Sports wrist Wrist Medicin e Radial Radial Problem Active 2019-02 [facility] styloid Styloid 1-12 Orthope tenosynovi Tenosynovi 00:00: di c tis tis 00 Sports Medicin e Pain in Pain in Problem Active 2019-02 [facility] right arm Right Arm 0-21 Orth ope 00:00: dic 00 Sports Medicin e Pain in Pain in Problem Active 2019-02 [facility] left arm Left Arm 0-21 Orthop e 00:00: dic 00 Sports Medicin e Carpal Carpal Problem Active [facility] tunnel Tunnel 8-06 Orthope syndrome Syndrome 00:00: dic 00 Sports Medicin e Carpal Carpal Problem Active [facility] tunnel Tunnel 8-06 Orthope syndrome Syndrome 00:00: dic of right of Right 00 Sports wrist Wrist Medicin e Smokes Smokes Problem Active [facility] tobacco Tobacco 2-19 Medical daily Daily 00:00: 00 Allergies, Adverse Reactions, Alerts Allergy Allergy Status Severity Reaction(s) Onset Inactive Treating Comm ents Source Name Type Date Date Clinician No Known DA Active U 2007-0 [facility] 3-19 [place] [facility] 00:[facility]: [facility] 00 [facility] No Known DA Active U 2007-0 [facility] Food 3-18 [place] Allergie 00:00: Orthope s 00 [facility] No Known DA Active U 2008-0 [facility] Other 3-18 [place] Allergie 00:00: Orthope s 00 dic [facility] No Known DA Active U 2007-0 [facility] Contrast 3-18 [place] Allergie 00:00: Orthope s 00 [facility] No Known DA Active U 2008-0 [facility] Drug 3-18 [place] Allergie 00:00: Orthope s 00 dic [facility]ita l Social History Smoking Status Start Date Stop Date Source Heavy Tobacco Smoker [facility] Former Smoker [facility] Medications Ordered Filled Start Stop Current Ordering Indication Dosage Frequency Signature Comments Components Source Medication Medication Date Date Medication? Clinician (SIG) Name Name Washington Washington No Washington [facility] Thyroid 15 Thyroid 15 Thyroid 15 Medical mg tablet mg tablet mg tablet Take by Take by Take by oral route. oral route. oral route. CVS Vitamin CVS Vitamin No CVS P rivia B12 1,000 B12 1,000 Vitamin Me dical mcg tablet mcg tablet B12 1,000 Take by Take by mcg tablet oral route. oral route. Take by oral route. Vitamin D3 Vitamin D3 No Vitamin D3 [facility] hydrocodone hydrocodone No 1 Q6H hydrocodon [facility]ela 5 5 e 5 Orthope mg-acetamin mg-acetamin mg-acetami dic ophen 325 ophen 325 nophen 325 Sports mg tablet mg tablet mg tablet Medicin Take 1 Take 1 Take 1 e tablet tablet tablet every 6 every 6 every 6 hours by hours by hours by oral route. oral route. oral route. [place] 325 [place] 325 No 1 Q6H [place] 325 [facility] mg-5 mg mg-5 mg mg-5 mg Orthop e tablet Take tablet Take tablet dic 1 tablet 1 tablet Take 1 Sport s every 6 every 6 tablet Medicin hours by hours by every 6 e oral route oral route hours by with meals. with meals. oral route with meals. Trulance 3 Trulance 3 No Trulance 3 [facility] mg tablet mg tablet mg tablet Orthope TAKE 1 TAKE 1 TAKE 1 dic TABLET BY TABLET BY TABLET BY Sports MOUTH ONCE MOUTH ONCE MOUTH ONCE Medicin A DAY A DAY A DAY e DIRECTED DIRECTED DIRECTED FOR 30 DAYS FOR 30 DAYS FOR 30 DAYS hydrocodone hydrocodone No 1 Q6H hydrocodon [facility]ela 5 5 e 5 Orthope mg-acetamin mg-acetamin mg-acetami dic ophen 325 ophen 325 nophen 325 Sports mg tablet mg tablet mg tablet Medicin Take 1 Take 1 Take 1 e tablet tablet tablet every 6 every 6 every 6 hours by hours by hours by oral route. oral route. oral route. [place] 325 [place] 325 No 1 Q6H [place] 325 [facility] mg-5 mg mg-5 mg mg-5 mg Orthop e tablet Take tablet Take tablet dic 1 tablet 1 tablet Take 1 Sport s every 6 every 6 tablet Medicin hours by hours by every 6 e oral route oral route hours by with meals. with meals. oral route with meals. Trulance 3 Trulance 3 No Trulance 3 [facility] mg tablet mg tablet mg tablet Orthope TAKE 1 TAKE 1 TAKE 1 dic TABLET BY TABLET BY TABLET BY Sports MOUTH ONCE MOUTH ONCE MOUTH ONCE Medicin A DAY A DAY A DAY e DIRECTED DIRECTED DIRECTED FOR 30 DAYS FOR 30 DAYS FOR 30 DAYS Vital Signs Vital Name Observation Time Observation Value Comments Source BP Diastolic 2022-06-11 00:00:00 105 mm[Hg] [facility] Height 2022-06-11 00:00:00 62 [in_i] [facility] BMI (Body Mass 2022-06-11 00:00:00 26 kg/m2 [facility] Medical Index) BP Systolic 2022-06-11 00:00:00 153 mm[Hg] [facility] Body Weight 2022-06-11 00:00:00 142 [lb_av] [facility] Height 2021-08-07 00:00:00 62 [in_i] [facility] BMI (Body Mass 2021-08-07 00:00:00 23.8 kg/m2 [facility] Index) Sports Medicine Body Weight 2021-08-07 00:00:00 130 [lb_av] [facility] BP Diastolic 2021-06-05 00:00:00 86 mm[Hg] [facility] Height 2021-06-05 00:00:00 62 [in_i] [facility] BMI (Body Mass 2021-06-05 00:00:00 24.9 kg/m2 [facility] Medical Index) BP Systolic 2021-06-05 00:00:00 132 mm[Hg] [facility] Body Weight 2021-06-05 00:00:00 136 [lb_av] [facility] Procedures Procedure Date / Time Performing Clinician Source Performed MAMMO, diagnostic, 2022-06-11 00:00:00 [facility] dical bilateral ULTRASOUND OF PELVIS 2022-06-11 00:00:00 [facility] Carpal Tunnel Surgery 2018-02-23 00:00:00 [facility] Orthopedic Surgery 2017-07-24 00:00:00 [facility] dical Gastrointestinal Surgery 2014-01-23 00:00:00 [place] Ectopic 2013-07-24 00:00:00 [facility] Med ical Removal of Ectopic Fetus [facility] Medicine Plan of Care Planned Activity Planned Date Details Comments Source Diagnostic Test Pending 2022-06-11 [place] IgE Ab [facility] Medical 00:00:00 [Units/volume] in Serum [code = 6195-2] Future Appointment 2023-06-12 German Fox, Sarina [place] via Medical 00:00:00 [address] , [place] [address] Encounters Start End Encounter Admission Attending Care Care Encounter Source Date/Time Date/Time Type Type Clinicians Facility Department ID 2022-07-03 Outpatient [facility] [id number] [place] 15:38:01 [id number] [facility] 2022-07-02 Outpatient [facility] [id number] [place] 13:27:18 [id number] [facility] 2022-06-25 Outpatient [facility] [id number] [place] 08:13:37 [id number] [facility] 2022-11-20 2022-11-20 Outpatient SETH, [facility] [id number] [place] 08:40:00 08:40:00 JOSE [facility] 2022-10-29 2022-10-29 Outpatient [facility]_ PRIV PRIV [id number] [facility] 00:00:00 00:00:00 Víctor [id number] Medic al 2022-10-29 2022-10-29 Outpatient [facility]_ PRIV PRIV [id number] [facility] 00:00:00 00:00:00 Víctor [id number] Medic al 2022-10-28 2022-10-28 Outpatient [facility]_ PRIV PRIV [id number] [facility] 00:00:00 00:00:00 Víctor [id number] Medic al 2022-10-15 2022-10-15 Outpatient GC_SWHATBIC PRIV PRIV [id number] [facility] 00:00:00 00:00:00 _Víctor [id number] [facility] 2022-09-23 2022-09-23 Outpatient GC_[facility]WHAOMC_ PRIV PRIV [id number] [facility] 00:00:00 00:00:00 Víctor [id number] Medic al 2022-09-17 2022-09-17 Outpatient GC_SWHATBIC PRIV PRIV [id number] [facility] 00:00:00 00:00:00 _Víctor [id number] [facility] radha 2022-07-16 2022-07-16 Outpatient GC_[facility]_ PRIV PRIV [id number] [facility] 00:00:00 00:00:00 Víctor [id number] Medic al 2022-07-16 2022-07-16 Outpatient GC_[facility]_ PRIV PRIV [id number] [facility] 00:00:00 00:00:00 Víctor [id number] Medic al 2022-07-15 2022-07-15 Outpatient GC_[facility]_ PRIV PRIV [id number] [facility] 00:00:00 00:00:00 Víctor [id number] Medic al 2022-07-11 2022-07-11 Outpatient GC_[facility]_ PRIV PRIV [id number] [facility] 00:00:00 00:00:00 Víctor [id number] Medic al 2022-06-11 2022-06-11 German PRIV [facility] [id number] [facility] 00:00:00 00:00:00 [facility] al RAGINI Fox MD: [address], [place] [address] , Ph. 2022-06-10 2022-06-10 Outpatient GC_[facility]_ PRIV PRIV [id number] [facility] 00:00:00 00:00:00 Víctor [id number] Medic al 2022-06-10 2022-06-10 Outpatient GC_[facility]_ PRIV PRIV [id number] [facility] 00:00:00 00:00:00 Víctor [id number] Medic al 2022-06-05 2022-06-05 Outpatient GC_[facility]_ PRIV PRIV [id number] [facility] 00:00:00 00:00:00 Víctor [id number] Medic al 2021-08-07 2021-08-07 Outpatient FOG_Bennett AOSM AOSM [id number] [facility] 03:20:00 03:20:00 _Fannie [id number] Orth ope dic Sports Medicin e 2021-08-07 2021-08-07 Outpatient Davion, AOSM AOSM [id number] 00:00:00 00:00:00 Abimael S [id number] 2021-08-07 2021-08-07 Abimael S AOSM [place] - Ortho [id number] [facility]ela 00:00:00 00:00:00 Lacie Ricardo MD: [id number] FOG_Ofc dic [facility] e [address] , Ph. [phone] 2021-08-05 2021-08-05 Outpatient FOG_Bennett AOSM AOSM [id number] [facility] 02:08:00 02:08:00 _Fannie [id number] Orth ope dic Sports Medicin e 2021-07-29 2021-07-29 Outpatient FOG_Bennett AOSM AOSM [id number] [facility] 12:22:00 12:22:00 _Fannie [id number] Orth ope dic Sports Medicin e 2021-07-27 2021-07-27 Outpatient FOG_Bennett AOSM AOSM [id number] [facility]ela 08:48:00 08:48:00 _Fannie [id number] Orth ope dic Sports Medicin e 2021-07-26 2021-07-26 Outpatient FOG_Bennett AOSM AOSM [id number] [facility] 05:22:00 05:22:00 _Fannie [id number] Orth ope dic Sports Medicin e 2021-07-04 2021-07-04 Outpatient GC_[facility]AOM[facility]_ PRIV PRIV [id number] [facility] 09:39:00 09:39:00 Víctor [id number] Medic al 2021-06-19 2021-06-19 Abimael Rojas AOSM [place] - Ortho [id number] [facility] 00:00:00 00:00:00 Lacie Ricardo MD: [address] [facility] [place] [address] , Ph. [phone] 2021-06-11 2021-06-11 Abimael S AOSM [place] - Ortho [id number] Lela 00:00:00 00:00:00 Lacie Ricardo MD: [address] FOG_Surgery dic [facility] e [address] , Ph. [phone] 2021-06-11 2021-06-11 Outpatient WILLY RicardoSM [id number] 00:00:00 00:00:00 Abimael Rojas [id number] 2021-06-06 2021-06-06 Outpatient GC_[facility]OM[facility]_ PRIV PRIV [id number] [facility] 02:03:00 02:03:00 Víctor [id number] Medic al 2021-06-05 2021-06-05 Outpatient GC_[facility]WHAOMC_ PRIV PRIV [id number] [facility] 11:40:00 11:40:00 Víctor [id number] Medic al 2021-06-05 2021-06-05 Outpatient Ruddy, PRIV PRIV [id number] 00:00:00 00:00:00 German [id number] Pollo [id number] 2021-06-05 2021-06-05 German PRIV [facility] 13 [facility] 00:00:00 00:00:00 [facility] EVITA Fox_ELAYNE_ : [address], [place] [address] , Ph. 2021-06-03 2021-06-03 Abimael S AO [place] - Ortho [id number] Lela 00:00:00 00:00:00 Lacie Ricardo MD: [address] FOG_Ofc dic [facility] Spo [facility] [place] [address] , Ph. [phone] 2021-05-31 2021-05-31 [facility] [id number] 12:06:00 12:06:00 Abimael 69 [place] [facility] 2021-05-31 2021-05-31 Jus Delgado AO [place] - Ortho 408 [facility]ela 00:00:00 00:00:00 Lacie Su MD: [address] FOG_Ofc dic [facility] Spo [facility] e [address] , Ph. [phone] 2020-05-02 2020-05-02 Outpatient GC_[facility]WHAOMC_ PRIV PRIV [id number] [facility] 02:39:00 02:39:00 Víctor [id number] Medic al 2020-05-02 2020-05-02 Outpatient GC_SWHAOMC_ PRIV PRIV [id number] [facility] 02:39:00 02:39:00 Víctor [id number] Medic al Results Test Description Test Time Test Comments Results Result Comments Source pap, LB + HR HPV 2021-06-05 00:00:00 Test Item Value Reference Range Interpretation Comme nts LMP date: (test code = LMP date:) 06/05/2021 Pap, liquid-based (test code = Pap, nilm nilm liquid-based) source (liquid-based cytology): (test cervical (which includes endo cervical) code = source ([facility]):[facility]O CONT [id number] 15:25:00 [facility] 1980 Sex: F Patient Name: JIL LEON Unit No: [id number] EXAMS: CPT CODE: [id number] MRI UP JNT W/[place] [id number] MRI OF THE RIGHT WRIST DIAGNOSIS: 1. There is a 16 mm septated ganglion cyst arising from the volar aspect of the lunatotriquetral articulation and extending through the extrinsic ligaments volar to thetriangular fibrocartilage and proximal adjacent to the distal radius. 2. Tenosynovitis of the flexorpollicis longus, the extensor digitorum, the extensor carpi radialis brevis and the extensor carpi radialis longus. There is no evidence for tendon tear. 3. No evidence for median nerve compression. COMMENT: COMPARISON: No prior exams available. Scans were performed in the sagittal, coronal and axial planes utilizing T1-weighting and spin density with fat saturation. No bony or hyaline cartilage lesions are seen. The scapholunate and lunatotriquetral ligaments are intact. There is no evidence for tear of the triangular fibrocartilage. No tendon tears are seen. There is no evidence for carpal malali gnment. at 1525 Reported and signed by: Juan Lazo MD CC: Abimael Ricardo MD Technologist: BATOOL PARTIDA MRI TranscribedD/ (1525) NathaliaL [facility] NAME: JIL LEON [address] [facility] PHYS: Abimael Valentin MD : 1980 AGE: 40 SEX: F [place] [address] LOC: Y.MRI PHONE #: [phone] EXAM DATE: 05/31/2021 STATUS: REG CLI FAX #: [phone] RAD#: D/C DT PAGE 1 Signed Report Patient Name: JIL LEON Unit No: [id number] EXAMS: CPT CODE: [id number] [place] JNT W/[place] [id number] (Continued) Orig Print D/T: S: 05/31/2021 (1528) [facility] NAME: JIL LEON [address] [facility] PHYS: Abimael Valentin MD : 1980 AGE: 40 SEX: F [place] [address] LOC: Y.MRI PHONE #: [phone] EXAM DATE:05/31/2021 STATUS: REG CLI FAX #: [phone] RAD #: D/C DT PAGE 2 Signed Reportpap, LB + HR [id number] 00:00:00 Test Item Value Reference Range Interpretation Comments LMP date: (test code = 05/02/2020 LMP date:) Pap, liquid-based nilm nilm (test code = Pap, liquid-based) source (liquid-based cervical (which cytology): (test code includes endocervical) = source (liquid-based cytology):) [facility]
[2022-11-01] MEDS ORDERED: NA CHLORIDE 0.9% 1,000 ML ONE (20:59)
[2022-11-01] MEDS ORDERED: FAMOTIDINE 20 MG/2 ML VIAL IV ONE (20:59)
[2022-11-01] MEDS ORDERED: ONDANSETRON 4 MG/2 ML VIAL ONE (20:59)
[2022-11-01] MEDS ORDERED: MORPHINE 4 MG/ML SYR ONE (20:59)
[2022-11-01 21:16] LABS: Specific Gravity < 1.005 (1.005-1.030); Urine Bacteria None Seen /HPF (<20); Urine Bilirubin NEGATIVE (Negative); Urine Blood 1+ (Negative); Urine Clarity Turbid (Clear); Urine Color Colorless (Yellow); Urine Glucose NEGATIVE (Negative); Urine Protein NEGATIVE (Negative); Urine RBC <5 /HPF (None Seen); Urine Urobilinogen Normal (Normal); Urine pH 6.5 (5.0-7.0)
[2022-11-01 21:17] LABS: Absolute Lymphocytes (CBC) 4.4 K/uL (0.7-4.9); Hematocrit 39.1 % (36.0-45.0); Lymphocytes % 38.5 % (15.3-44.8); MCV 91.3 fL (80-100); MPV 7.9 fL (7.6-11.3); Platelets 287 thou/uL (152-406); RBC Red Blood Cell Count 4.29 M/uL (3.86-4.86)
[2022-11-01 21:31] LABS: Albumin 3.6 g/dL (3.4-5.0); Bilirubin Total 0.4 mg/dL (0.2-1.0); Potassium 3.6 mEq/L (3.5-5.1); Protein, Total 7.2 g/dL (6.4-8.2)
--- NOTE | 2022-11-01 22:04 | RAD REPORT ---
EXAM DESCRIPTION: CTAbdomen Pelvis W Contrast - 11/01/2022 9:59 pm CLINICAL HISTORY: Abdominal pain. ABD PAIN COMPARISON: No comparisons TECHNIQUE: Biphasic CT imaging of the abdomen and pelvis was performed with 100 ml non-ionic IV cont rast. All CT scans are performed using dose optimization technique as appropriate and may include automated exposure control or mA/KV adjustment according to patient size. FINDINGS: The lung bases are clear.Cholecystectomy. The liver, spleen, pancreas, adrenal glands and kidneys are within normal limits. Small fat containin g umbilical hernia. No bowel obstruction, free air, free fluid or abscess. The appendix is normal. No evidence of signi ficant lymphadenopathy. Small uterine fibroids are present. No suspicious bony findings. IMPRESSION: No acute intra-abdominal or pelvic finding.
[2022-11-01] MEDS ORDERED: KETOROLAC 30 MG/ML INJ ONE (23:11)
[2022-11-01] MEDS ORDERED: PANTOPRAZOLE 40 MG INJ ONE (23:11)
[2022-11-01] MEDS ORDERED: HYDROMORPHONE HCL 1 MG/ML INJ ONE (23:11)
[2022-11-01] MEDS ORDERED: DICYCLOMINE HCL 20 MG/2 ML AMP IM ONE (23:11)
--- NOTE | 2022-11-02 00:03 | ER ---
Nurse's Notes [facility] Name: Kritsie Alarcon Age: 41 yrs Sex: Female : 1980 Arrival Date: 11/01/2022 Time: 20:33 Bed 17 Private MD: Diagnosis: Upper abdominal pain, unspecified Presentation: 11/01 20:35 Chief complaint: EMS states: RUQ PAIN SINCE THIS AM. Coronavirus screen: At this time, bp the client does not indicate any symptoms associated with coronavirus-19. Ebola Screen: No symptoms or risks identified at this time. Initial Sepsis Screen: Does the patient meet any 2 criteria? No. Patient's initial sepsis screen is negative. Does the patient have a suspected source of infection? No. Patient's initial sepsis screen is negative. Risk Assessment: Do you want to hurt yourself or someone else? Patient reports no desire to harm self or others. Onset of symptoms was November 01, 2022. Care prior to arrival: Medication(s) given: FENTANYL 100MCG IVP IV initiated. 18 GA, in the left antecubital area. 20:35 Method Of Arrival: EMS: [facility] bp 20:35 Acuity: FABIANA 3 bp Historical: - Allergies: 20:36 No Known Allergies; bp - PSHx: 20:36 Cholecystectomy; bp - Immunization history:: Adult Immunizations up to date. - Social history:: Smoking status: unknown. Screenin:37 [facility] ED Fall Risk Assessment (Adult) History of falling in the last 3 months, jb4 including since admission No falls in past 3 months (0 pts) Confusion or Disorientation No (0 pts) Score/Fall Risk Level 0 - 2 = Low Risk Oriented to surroundings, Maintained a safe environment. Abuse screen: Denies threats or abuse. Nutritional screening: No deficits noted. Tuberculosis screening: No symptoms or risk factors identified. Assessment: 20:37 General: Appears in no apparent distress. uncomfortable, Behavior is calm, cooperative, jb4 appropriate for age. Pain: Complains of pain in right upper quadrant Pain does not radiate. Pain currently is 10 out of 10 on a pain scale. Neuro: Level of Consciousness is awake, alert, obeys commands, Oriented to person, place, time, situation. Cardiovascular: Patient's skin is warm and dry. Respiratory: Airway is patent Respiratory effort is even, unlabored, Respiratory pattern is regular, symmetrical. GI: Abdomen is round non-distended, Reports upper abdominal pain. : No signs and/or symptoms were reported regarding the genitourinary system. EENT: No signs and/or symptoms were reported regarding the EENT system. Derm: Skin is intact, Skin is pink, warm \T\ dry. Musculoskeletal: Circulation, motion, and sensation intact. Range of motion: intact in all extremities. 21:50 Reassessment: Patient appears in no apparent distress at this time. Patient and/or jb4 family updated on plan of care and expected duration. Pain level reassessed. Patient is alert, oriented x 3, equal unlabored respirations, skin warm/dry/pink. 22:45 Reassessment: Patient appears in no apparent distress at this time. Patient and/or jb4 family updated on plan of care and expected duration. Pain level reassessed. Patient is alert, oriented x 3, equal unlabored respirations, skin warm/dry/pink. 23:52 Reassessment: Pt resting in bed with eyes closed, respirations are even and unlabored jb4 with no s/s of pain or distress noted. Placed on 2L NC after medication administration. Vital Signs: 20:35 BP 168 / 80; Pulse 95; Resp 16; Pulse Ox 100% ; bp 20:35 BP 159 / 98; Pulse 87; Resp 16; Temp 98.9(O); Pulse Ox 97% on R/A; Weight 64.86 kg; jb4 Height 5 ft. 2 in. ; Pain 10/10; 21:50 BP 120 / 70; Pulse 76; Resp 16; Pulse Ox 97% on R/A; jb4 22:45 BP 114 / 65; Pulse 77; Resp 16; Pulse Ox 96% on R/A; jb4 23:54 BP 125 / 78; Pulse 65; Resp 16; Pulse Ox 98% on 2 lpm NC; jb4 20:35 Body Mass Index 26.15 (64.86 kg, 157.48 cm) jb4 20:35 Pain Scale: Adult jb4 ED Course: 20:34 Patient arrived in ED. bp 20:35 Lon Solis, TAE is Primary Nurse. jb4 20:36 Triage completed. bp 20:37 Priti Chanel PA-C is PHCP. sb4 20:37 Nacho Dos Santos MD is Attending Physician. sb4 20:37 Patient has correct armband on for positive identification. Bed in low position. Call jb4 light in reach. Side rails up X 1. Client placed on continuous cardiac and pulse oximetry monitoring. NIBP monitoring applied. 22:00 CT Abd/Pelvis - IV Contrast Only In Process Unspecified. EDMS 11/02 00:03 Jim Booth MD is Referral Physician. sb4 00:25 No provider procedures requiring assistance completed. IV discontinued, intact, jb4 bleeding controlled, No redness/swelling at site. Pressure dressing applied. Administered Medications: 11/01 21:14 Drug: NS 0.9% IV 1000 ml Route: IV; Rate: 1 bolus; Site: left antecubital; jb4 21:14 Drug: Famotidine IVP 20 mg Route: IVP; Site: right antecubital; jb4 21:15 Drug: Ondansetron IVP 4 mg Route: IVP; Site: left antecubital; jb4 21:16 Drug: morphine IVP or IV 4 mg Route: IVP; Infused Over: 4 mins; Site: left antecubital; jb4 23:10 Drug: Pantoprazole IVP 40 mg Route: IVP; Site: left antecubital; jb4 23:10 Drug: Dicyclomine IM 20 mg Route: IM; Site: right gluteus; jb4 23:10 Drug: HYDROmorphone IVP 1 mg Route: IVP; Site: left antecubital; jb4 23:10 Drug: Ketorolac IVP 30 mg Route: IVP; Site: left antecubital; jb4 Medication: 20:37 VIS not applicable for this client. jb4 Outcome: 11/02 00:03 Discharge ordered by . sb4 00:25 Discharged to home via wheelchair, with family. jb4 00:25 Condition: stable 00:25 Discharge instructions given to patient, Instructed on discharge instructions, follow up and referral plans. medication usage, Demonstrated understanding of instructions, follow-up care, medications, Prescriptions given X 1. 00:26 Patient left the ED. jb4 Signatures: Dispatcher [employer] [facility] Lon Solis RN RN jb4 Marcos Gaines RN RN bp Brown, Sophia, TONYA PARobert sb4
--- NOTE | 2022-11-02 00:03 | EDPHYS ---
Physician Documentation [facility] Name: Kristie Alarcon Age: 41 yrs Sex: Female : 1980 Arrival Date: 11/01/2022 Time: 20:33 Bed 17 Private MD: ED Physician Nacho Dos Santos HPI: 11/01 23:37 This 41 yrs old Female presents to ER via EMS with complaints of Abdominal Pain. sb4 23:37 The patient presents with abdominal pain in the epigastric area, in the right upper sb4 quadrant. Onset: The symptoms/episode began/occurred this morning. The symptoms do not radiate. Associated signs and symptoms: Pertinent positives: nausea, Pertinent negatives: diarrhea, vomiting. The symptoms are described as intermittent, stabbing. Modifying factors: The symptoms are alleviated by nothing, the symptoms are aggravated by nothing. Severity of pain: At its worst the pain was a 10 / 10 in the emergency department the pain is unchanged despite EMS interventions. Historical: - Allergies: 20:36 No Known Allergies; bp - PSHx: 20:36 Cholecystectomy; bp - Immunization history:: Adult Immunizations up to date. - Social history:: Smoking status: unknown. ROS: 23:45 Constitutional: Negative for fever, chills, and weight loss. sb4 23:45 Abdomen/GI: Positive for abdominal pain, nausea. 23:45 All other systems are negative. Exam: 11/02 03:22 Head/Face: Normocephalic, atraumatic. Eyes: Extra-ocular motions intact. Periorbital sb4 areas with no swelling, redness, or edema. ENT: Mucous membranes moist. Cardiovascular: Regular rate and rhythm with a normal S1 and S2. Respiratory: Lungs have equal breath sounds bilaterally, clear to auscultation and percussion. No rales, rhonchi or wheezes noted. No increased work of breathing, no retractions or nasal flaring. Skin: Warm, dry with normal turgor. Normal color with no rashes, no lesions, and no evidence of cellulitis. MS/ Extremity: Pulses equal, no cyanosis. Neurovascular intact. Full, normal range of motion. Constitutional: The patient appears alert, awake, obviously ill, uncomfortable. Abdomen/GI: Inspection: abdomen appears normal, Bowel sounds: normal, Palpation: soft, moderate abdominal tenderness, in the epigastric area and right upper quadrant, Indicators: Ochoa's sign is negative. Vital Signs: 11/01 20:35 BP 168 / 80; Pulse 95; Resp 16; Pulse Ox 100% ; bp 20:35 BP 159 / 98; Pulse 87; Resp 16; Temp 98.9(O); Pulse Ox 97% on R/A; Weight 64.86 kg; jb4 Height 5 ft. 2 in. ; Pain 10/10; 21:50 BP 120 / 70; Pulse 76; Resp 16; Pulse Ox 97% on R/A; jb4 22:45 BP 114 / 65; Pulse 77; Resp 16; Pulse Ox 96% on R/A; jb4 23:54 BP 125 / 78; Pulse 65; Resp 16; Pulse Ox 98% on 2 lpm NC; jb4 20:35 Body Mass Index 26.15 (64.86 kg, 157.48 cm) jb4 20:35 Pain Scale: Adult jb4 MDM: 20:38 Patient medically screened. 4 11/02 03:22 Differential diagnosis: appendicitis, gastritis, non-specific abd pain, pancreatitis, sb4 Peptic Ulcer Disease, Peritonitis. Data reviewed: vital signs, nurses notes, EMS record, lab test result(s), radiologic studies, and as a result, I will discharge patient. Consideration of Admission/Observation Escalation of care including admission/observation considered. Historians other than the Patient: Parent: mom, dad, . 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 11/01 20:38 Order name: CBC with Diff; Complete Time: 21:19 4 11/01 20:38 Order name: CMP; Complete Time: 21:32 sb4 11/01 20:38 Order name: Lipase; Complete Time: 21:32 sb4 11/01 20:38 Order name: Urinalysis w/ reflexes; Complete Time: 21:19 4 11/01 20:38 Order name: CT Abd/Pelvis - IV Contrast Only; Complete Time: 22:10 4 11/01 20:38 Order name: IV Saline Lock; Complete Time: 20:42 sb4 11/01 20:38 Order name: Labs collected and sent; Complete Time: 21:14 sb4 Administered Medications: 11/01 21:14 Drug: NS 0.9% IV 1000 ml Route: IV; Rate: 1 bolus; Site: left antecubital; jb4 21:14 Drug: Famotidine IVP 20 mg Route: IVP; Site: right antecubital; jb4 21:15 Drug: Ondansetron IVP 4 mg Route: IVP; Site: left antecubital; jb4 21:16 Drug: morphine IVP or IV 4 mg Route: IVP; Infused Over: 4 mins; Site: left antecubital; jb4 23:10 Drug: Pantoprazole IVP 40 mg Route: IVP; Site: left antecubital; jb4 23:10 Drug: Dicyclomine IM 20 mg Route: IM; Site: right gluteus; jb4 23:10 Drug: HYDROmorphone IVP 1 mg Route: IVP; Site: left antecubital; jb4 23:10 Drug: Ketorolac IVP 30 mg Route: IVP; Site: left antecubital; jb4 Disposition: 11/02 08:05 Co-signature as Attending Physician, Nacho Dos Santos MD I reviewed the patient's care rt provided by the Advanced Practice Provider and agree with the diagnosis and treatment plan. Disposition Summary: 11/02/22 00:03 Discharge Ordered Location: Home sb4 Problem: new sb4 Symptoms: have improved sb4 Condition: Stable sb4 Diagnosis - Upper abdominal pain, unspecified sb4 Followup: sb4 - With: Jim Booth MD - When: As needed - Reason: Further diagnostic work-up, Recheck today's complaints, Re-evaluation by your physician Discharge Instructions: - Discharge Summary Sheet sb4 - Pain Without a Known Cause sb4 - Abdominal Pain, Adult, [id number] sb4 Forms: - Medication Reconciliation Form sb4 - Thank You Letter sb4 - Antibiotic Education sb4 - Prescription Opioid Use sb4 - Patient Portal Instructions sb4 - Leadership Thank You Letter sb4 Prescriptions: - dicyclomine 20 mg Oral tablet - take 1 tablet by ORAL route 4 times per day as needed for abdominal pain; 12 sb4 tablet; Refills: 0, Product Selection Permitted Signatures: Dispatcher [employer] EDLon Martines RN RN jb4 Marcos Gaines, RN RN Priti Lezama, PARobert PARobert sb4 Nacho Dos Santos MD MD rt Corrections: (The following items were deleted from the chart) 11/01 21:09 20:39 Test, Urine+[id number].LAB.BRZ ordered. EDMS EDMS
[2022-11-02 00:35] VITALS: TEMP 98.9
[2022-11-02 00:40] VITALS: BP 125/78; O2SAT 98
== END 2022-11-02 00:26 | disposition home or self-care (01) ==
LOC: ER 20:33
DX: R10.13 Epigastric pain (principal); Z90.49 Acquired absence of other specified parts of digestive tract
CPT/HCPCS: 85025; 81001; 36415; 83690; 80053; 74177; 96372; 99284; Q9967; J0500; C9113; J1170; J2405; J7030

== ENCOUNTER 2023-08-28 20:14 | Emergency (ER) | payer BC ==
--- OUTSIDE RECORDS SUMMARY | 2023-08-28 20:19 | XMS REPORT | Continuity of Care Document ---
Author Name Unknown Address [address] [facility] [address] [place] [address] [facility] thconnect Address [address] [facility] [address] [place] [address] Care Team Providers Care Family Consumer Scientist Name Role Phone [facility] Attending Clinician UnavailGerman Peck Attending Clinician Unavailable JOSE ANN Attending Clinician Unavailable Devin Attending Clinician Unavail able Lyly Attending Clinician Unavail able Abimael Ricardo Attending Clinician [phone] German Fox Attending Clinician [phone] Abimael Ricardo Attending Clinician Unavailab le [place] Admitting Clinician UnavailGerman Peck Admitting Clinician Unavailable Devin Admitting Clinician Unavail able Lyly Admitting Clinician Unavail able KNOW, DOES_NOT Admitting Clinician Unavailable Payers Payer Name Policy Type Policy Number Effective Date Expirati on Date Source [place] [id number] 2022 00:00:00 [place] [id number] 2020 00:00:00 2023 00:00:00 Problems Condition Name Condition Details Condition Category Status Onset Date Resolution Date Last Treatment Date Treating Clinician Comments Source Postoperat shayy pain Postoperat shayy Pain Problem Active 10-30 00:00: 00 [facility] Dysmenorrh ea Dysmenorrh ea Problem Active 9-05 00:00: 00 [facility] Menorrhagi a Menorrhagi a Problem Active 5-24 00:00: 00 [facility] Ulnar nerve entrapment at wrist Ulnar Nerve Entrapment at Wrist Problem Active 5-03 00:00: 00 [facility] Ganglion cyst of right dorsal wrist Ganglion Cyst of Right Dorsal Wrist Problem Active 5-03 00:00: 00 [facility] Radial styloid tenosynovi tis Radial Styloid Tenosynovi tis Problem Active 2019-02 1-12 00:00: 00 [facility] Pain in left arm Pain in Left Arm Problem Active 2019-02 0-21 00:00: 00 [facility] Pain in right arm Pain in Right Arm Problem Active 2019-02 0-21 00:00: 00 [facility] Carpal tunnel syndrome Carpal Tunnel Syndrome Problem Active 0 8-06 00:00: 00 [facility] Carpal tunnel syndrome of right wrist Carpal Tunnel Syndrome of Right Wrist Problem Active 8-06 00:00: 00 [facility] Smokes tobacco daily Smokes Tobacco Daily Problem Active 0 2-19 00:00: 00 [facility] Allergies, Adverse Reactions, Alerts Allergy Name Allergy Type Status Severity Reaction(s) Onset Date Inactive Date Treating Clinician Comments Source No Known Allergie s DA Active U 9-28 00:00: [address] [facility] No Known Drug Intolera nces DA Active U 3-19 00:00: [address] [facility] No Known Contrast Allergie s DA Active U 18 00:00: [address] [facility] No Known Drug Allergie s DA Active U 3-18 00:00: [address] [facility] No Known Food Allergie s DA Active U 3-18 00:00: [address] [facility] No Known Other Allergie s DA Active U 3-18 00:00: 00 [facility] Social History Smoking Status Start Date Stop Date Source Former Smoker [facility] Heavy Tobacco Smoker [facility] Medications Ordered Medication Name Filled Medication Name Start Date Stop Date Current Medication? Ordering Clinician Indication Dosage Frequency Signature (SIG) Comments Components Source metformin metformin No metformin [facility] hydrocodone 5 mg-acetamin ophen 325 mg tablet Take 1 tablet every 6 hours by oral route. hydrocodone 5 mg-acetamin ophen 325 mg tablet Take 1 tablet every 6 hours by oral route. No 1 Q6H hydrocodon e 5 mg-acetami nophen 325 mg tablet Take 1 tablet every 6 hours by oral route. [facility] [place] 325 mg-5 mg tablet Take 1 tablet every 6 hours by oral route with meals. [place] 325 mg-5 mg tablet Take 1 tablet every 6 hours by oral route with meals. No 1 Q6H [place] 325 mg-5 mg tablet Take 1 tablet every 6 hours by oral route with meals. [facility] Trulance 3 mg tablet TAKE 1 TABLET BY MOUTH ONCE A DAY DIRECTED FOR 30 DAYS Trulance 3 mg tablet TAKE 1 TABLET BY MOUTH ONCE A DAY DIRECTED FOR 30 DAYS No Trulance 3 mg tablet TAKE 1 TABLET BY MOUTH ONCE A DAY DIRECTED FOR 30 DAYS [facility] hydrocodone 5 mg-acetamin ophen 325 mg tablet Take 1 tablet every 6 hours by oral route. hydrocodone 5 mg-acetamin ophen 325 mg tablet Take 1 tablet every 6 hours by oral route. No 1 Q6H hydrocodon e 5 mg-acetami nophen 325 mg tablet Take 1 tablet every 6 hours by oral route. [facility] [place] 325 mg-5 mg tablet Take 1 tablet every 6 hours by oral route with meals. [place] 325 mg-5 mg tablet Take 1 tablet every 6 hours by oral route with meals. No 1 Q6H [place] 325 mg-5 mg tablet Take 1 tablet every 6 hours by oral route with meals. [facility] Trulance 3 mg tablet TAKE 1 TABLET BY MOUTH ONCE A DAY DIRECTED FOR 30 DAYS Trulance 3 mg tablet TAKE 1 TABLET BY MOUTH ONCE A DAY DIRECTED FOR 30 DAYS No Trulance 3 mg tablet TAKE 1 TABLET BY MOUTH ONCE A DAY DIRECTED FOR 30 DAYS [facility] Vital Signs Vital Name Observation Time Observation Value Comments S ource BP Diastolic 2023-08-25 00:00:00 74 mm[Hg] [facility] BMI (Body Mass Index) 2023-08-25 00:00:00 24.5 kg/m2 [facility] BP Systolic 2023-08-25 00:00:00 118 mm[Hg] [facility] Body Weight 2023-08-25 00:00:00 134 [lb_av] [facility] Height 2023-08-25 00:00:00 62 [in_i] [facility] BP Diastolic 2022-06-11 00:00:00 105 mm[Hg] [facility] Height 2022-06-11 00:00:00 62 [in_i] [facility] BMI (Body Mass Index) 2022-06-11 00:00:00 26 kg/m2 [facility] BP Systolic 2022-06-11 00:00:00 153 mm[Hg] [facility] Body Weight 2022-06-11 00:00:00 142 [lb_av] [facility] Height 2021-08-07 00:00:00 62 [in_i] [facility] BMI (Body Mass Index) 2021-08-07 00:00:00 23.8 kg/m2 [facility] Body Weight 2021-08-07 00:00:00 130 [lb_av] [facility] BP Diastolic 2021-06-05 00:00:00 86 mm[Hg] [facility] Height 2021-06-05 00:00:00 62 [in_i] [facility] BMI (Body Mass Index) 2021-06-05 00:00:00 24.9 kg/m2 [facility] BP Systolic 2021-06-05 00:00:00 132 mm[Hg] [facility] Body Weight 2021-06-05 00:00:00 136 [lb_av] [facility] Procedures Procedure Date / Time Performed Performing Clinician Source SCREENING MAMMOGRAPHY BI 2-VIEW BREAST INC CAD 2023-08-25 00:00:00 [facility] Hysterectomy 2022-11-28 00:00:00 Heidi Flood edical MAMMO, diagnostic, bilateral 2022-06-11 00:00:00 [facility] ULTRASOUND OF PELVIS 2022-06-11 00:00:00 [facility] Carpal Tunnel Surgery 2018-02-23 00:00:00 [facility] Orthopedic Surgery 2017-07-24 00:00:00 [facility] Gastrointestinal Surgery 2014-01-23 00:00:00 [facility] Ectopic 2013-07-24 00:00:00 [facility] Removal of Ectopic Fetus [facility] Encounters Start Date/Time End Date/Time Encounter Type Admission Type Attending Clinicians Care Facility Care Department Encounter ID Source 2022-07-03 15:38:01 Outpatient [facility] [id number] [facility] 2022-07-02 13:27:18 Outpatient [facility] [id number] [facility] 2022-06-25 08:13:37 Outpatient [facility] [id number] [facility] 2023-08-25 00:00:00 2023-08-25 00:00:00 German Fox MD: [address] [facility] [address], [address], [place] [address] , Ph. [facility] [place] Office* [id number] [facility] 2023-01-05 00:00:00 2023-01-05 00:00:00 Outpatient [facility]_ Cooper_J PRIV PRIV [id number] [facility] 2023-01-05 00:00:00 2023-01-05 00:00:00 Outpatient [facility]_ Cooper_J PRIV PRIV [id number] [facility] 2023-01-05 00:00:00 2023-01-05 00:00:00 Outpatient [facility]_ Cooper_J PRIV PRIV [id number] [facility] 2022-12-10 00:00:00 2022-12-10 00:00:00 Outpatient [facility]_ Cooper_J PRIV PRIV [id number] [facility] 2022-12-01 00:00:00 2022-12-01 00:00:00 Outpatient [facility]_ Cooper_J PRIV PRIV [id number] [facility] 2022-11-28 09:10:00 2022-11-29 14:01:00 Inpatient German Gilliland [facility].01 [id number] [facility] 2022-11-20 08:40:00 2022-11-20 08:40:00 Outpatient JOSE ANN [facility] [id number] [facility] 2022-11-20 00:00:00 2022-11-20 00:00:00 Outpatient [facility]_ Cooper_J PRIV PRIV [id number] [facility] 2022-11-12 00:00:00 2022-11-12 00:00:00 Outpatient GC_SWHATBIC _Cooper_J PRIV PRIV [id number] [facility] 2022-11-03 00:00:00 2022-11-03 00:00:00 Outpatient [facility]_ Cooper_J PRIV PRIV [id number] [facility] 2022-10-29 00:00:00 2022-10-29 00:00:00 Outpatient [facility]_ Cooper_J PRIV PRIV [id number] [facility] 2022-10-29 00:00:00 2022-10-29 00:00:00 Outpatient [facility]_ Cooper_J PRIV PRIV [id number] [facility] 2022-10-28 00:00:00 2022-10-28 00:00:00 Outpatient [facility]_ Cooper_J PRIV PRIV [id number] [facility] 2022-10-15 00:00:00 2022-10-15 00:00:00 Outpatient GC_S[facility] _Cooper_J PRIV PRIV [id number] [facility] 2022-09-23 00:00:00 2022-09-23 00:00:00 Outpatient [facility]_ Cooper_J PRIV PRIV [id number] [facility] 2022-09-17 00:00:00 2022-09-17 00:00:00 Outpatient GC_SWHATB[facility] _Cooper_J PRIV PRIV [id number] [facility] 2022-07-16 00:00:2022-07-16 00:00:00 Outpatient [facility]_ Cooper_J PRIV PRIV [id number] [facility] 2022-07-16 00:00:00 2022-07-16 00:00:00 Outpatient [facility]_ Cooper_J PRIV PRIV [id number] [facility] 2022-07-15 00:00:00 2022-07-15 00:00:00 Outpatient [facility]_ Cooper_J PRIV PRIV [id number] [facility] 2022-07-11 00:00:00 2022-07-11 00:00:00 Outpatient [facility]_ Cooper_J PRIV PRIV [id number] [facility] 2022-06-11 00:00:00 2022-06-11 00:00:00 German Fox MD: [address] [place] [address] , Ph. [facility] [id number] [facility] 2022-06-10 00:00:00 2022-06-10 00:00:00 Outpatient [facility]_ Cooper_J PRIV PRIV [id number] [facility] 2022-06-10 00:00:00 2022-06-10 00:00:00 Outpatient [facility]_ Cooper_J PRIV PRIV [id number] [facility] 2022-06-05 00:00:00 2022-06-05 00:00:00 Outpatient [facility]_ Cooper_J PRIV PRIV [id number] [facility] 2021-08-07 03:20:00 2021-08-07 03:20:00 Outpatient Elvira Gonzalez AOSM AO [id number] [facility] 2021-08-07 00:00:00 2021-08-07 00:00:00 Outpatient Abimael Ricardo S AOSM AOSM [id number] 2021-08-07 00:00:00 2021-08-07 00:00:00 Abimael Ricardo MD: [address] [place] [phone] , Ph. [phone] [facility] [place] - [facility] [place] - FOG_Of[facility] [address] [place] [id number] [facility] 2021-08-05 02:08:00 2021-08-05 02:08:00 Outpatient FOG_Jl Gonzalez AOSM AO [id number] [facility] 2021-07-29 12:22:00 2021-07-29 12:22:00 Outpatient FOG_Jl Gonzalez AOSM AO [id number] [facility] 2021-07-27 08:48:00 2021-07-27 08:48:00 Outpatient FOG_Jl Gonzalez AOSM AO [id number] [facility] 2021-07-26 05:22:00 2021-07-26 05:22:00 Outpatient FOG_lJ Gonzalez AO AO [id number] [facility] 2021-07-04 09:39:00 2021-07-04 09:39:00 Outpatient GC[facility]_ Cooper_J PRIV [facility] [id number] [facility] 2021-06-19 00:00:00 2021-06-19 00:00:00 Abimael Ricardo MD: [address] [place] [address] , Ph. [phone] [facility] [place] [facility] [place] [facility] [address] [place] [id number] [facility] 2021-06-11 00:00:00 2021-06-11 00:00:00 Abimael Ricardo MD: [address] [place] [address] , Ph. [phone] [facility] [place] [facility] [place] - [facility] [id number] [facility] 2021-06-11 00:00:00 2021-06-11 00:00:00 Outpatient Abimael Ricardo AO AO [id number] 2021-06-06 02:03:00 2021-06-06 02:03:00 Outpatient GC_ONEIDAOMC_ Ruddy_Sandy PRIV PRIV [id number] [facility] 2021-06-05 11:40:00 2021-06-05 11:40:00 Outpatient GC_SWMORAIMAOM[facility]_ Ruddy_J PRIV PRIV [id number] [facility] 2021-06-05 00:00:00 2021-06-05 00:00:00 Outpatient German Fox [facility] [id number] 2021-06-05 00:00:00 2021-06-05 00:00:00 German Fox MD: [address] [place] [address] , Ph. [facility] [place] Office [id number] [facility] 2021-06-03 00:00:00 2021-06-03 00:00:00 Abimael Ricardo MD: [address] [place] [phone] , Ph. [phone] [place] - [facility] [place] - FOG_[address] [id number] [facility] 2021-05-31 12:06:00 2021-05-31 12:06:00 Outpatient INEZ Davion Abimael HCATO RADI [id number] [address] [facility] [place] [facility] 2021-05-31 00:00:00 2021-05-31 00:00:00 Jus Su MD: [address] [place] [address] , Ph. [phone] [place] - [facility] [place] - FOG[facility] [id number] [facility] 2020-05-02 02:39:00 2020-05-02 02:39:00 Outpatient [facility]_ Ruddy_J [facility] [id number] [facility] 2020-05-02 02:39:00 2020-05-02 02:39:00 Outpatient [facility]_ Ruddy_J [facility] [id number] [facility] Results Test Description Test Time Test Comments Results Result Co mments Source [id number] 14:15:00* Test Item Value Reference Range Interpretation Comme nts GLUBED (test code = GLUBED) 108 mg/dL 65-110 N [id number] 10:21:00* Test Item Value Reference Range Interpretation Comme nts GLUBED (test code = GLUBED) 107 mg/dL 65-110 N UR HCG [id number] 09:49:00* Test Item Value Reference Range Interpretation Comme nts UR HCG QUAL (test code = HCGQLU) NEGATIVE 1. Very dilute u rine specimens, as indicated by a lowspecific gravity, may not contain credit and collections representative levels ofhCG. 2. False negative results may occur when the levels of hCGare below the sensitivity level of the test. If is still suspected, a first morningurine specimen should be collected 48 hours later andtested. BASIC METABOLIC [id number] 17:40:00* Test Item Value Reference Range Interpretation Comme nts SODIUM (test code = NA) 139 mEq/L 135-145 N POTASSIUM (test code = K) 4.2 mEq/L 3.5-5.0 N CHLORIDE (test code = CL) 101 mEq/L 100-115 N CARBON DIOXIDE (test code = CO2) 28 mEq/L 22-31 N ANION GAP (test code = GAP) 14.50 10-20 N GLUCOSE (test code = GLU) 86 mg/dL 65-110 N BLOOD UREA NITROGEN (test code = BUN) 10 mg/dL 7-18 N CREATININE (test code = CREAT) 0.7 mg/dL 0.5-1.0 N CALCIUM (test code = CA) 9.4 mg/dL 8.4-10.2 N GLOMERULAR FILTRATION RATE (test code = GFR) 113 ml/min >60 N The Glomerular Filtration Rate is a calculated parameterbased on serum Creatinine, patient age and sex. GFR valuesless than 60 mL/min/1.73 square meters are indicative ofChronic Kidney Disease. Values less than 15 mL/min/1.73square meters indicate Kidney failure. The calculation forGFR is based on the CKD-EPI (2020) calculation. This formulais race indifferent and is the recommended formula for GFRby the National Kidney Foundation for Adults.The GFR will not calculate if the sex is unknown or if thepatient's age is <18 years. LIPID PROFILE (CORONARY RISK)2022-11-20 17:40:00* Test Item Value Reference Range Interpretation Comme nts TRIGLYCERIDES (test code = TRIG) 193 mg/dL H Normal < 150 Borderline high 150 - 199 High 200 - 499 Very High > 500 CHOLESTEROL (test code = CHOL) 212 mg/dL 120-200 H HDL CHOLESTEROL (test code = HDL) 50 mg/dL HDL <40 = Low HD L Cholesterolhdl >60 = High HDL CholesterolSource: NCEP-ATPIII LIPOPROTEIN LDL (test code = LDL) 124 mg/dL <130 (DESIRABLE) 130-159 (BORDERLINE) >=160 (HIGH) LIVER [id number] 17:40:00* Test Item Value Reference Range Interpretation Comme nts TOTAL PROTEIN (test code = PROT) 7.9 gm/dL 6.3-8.2 N ALBUMIN (test code = ALB) 4.2 gm/dL 3.4-4.8 N BILIRUBIN TOTAL (test code = BILT) 0.6 mg/dL 0.2-1.0 N BILIRUBIN DIRECT (test code = BILD) 0.1 mg/dL <0.2 N SGOT/AST (test code = AST) 22 units/L 15-37 N SGPT/ALT (test code = ALT) 45 units/L 12-78 N ALKALINE PHOSPHATASE TOTAL ( test code = ALKP) 91 units/L 46-116 N HCG SERUM [id number] 17:40:00* Test Item Value Reference Range Interpretation Comme nts HCG SERUM QUAL (test code = HCGQL) NEGATIVE AG HEPATITIS B [id number] 16:43:00* Test Item Value Reference Range Interpretation Comme nts AG HEPATITIS B SURFACE (test code = HBSAG) NONREACTIVE NONREACTIVE AB HEPATITIS C [id number] 16:43:00* Test Item Value Reference Range Interpretation Comme nts AB HEPATITIS C (test code = HCVAB) NONREACTIVE NONREACTIVE SIGNAL TO CUTOFF (test code = CUTOFF) 0.10 <0.80 N AB HIV 1 16:43:00* Test Item Value Reference Range Interpretation Comme nts AB HIV 1 2 (test code = TLF83SG) NONREACTIVE NONREACTIVE Done by [employer] 4th Gen HIV Ag/Ab Combo Screen COVID 19 Asymptomatic IH [id number] 15:51:00* Test Item Value Reference Range Interpretation Comme nts COVID 19 Asymptomatic IH AG (test code = COVNONPUIAG) NEGATIVE NEGATIVE This test has be en authorized only for the detection ofproteins from SARS-CoV-2, not for any other viruses orpathogens. Negative results should be treated as presumptive andconfirmed with a molecular assay, if necessary for patientmanagement. Negative results do not rule out COVID-19 andshould not be used as the sole basis for treatment orpatient management decisions, including infection controldecisions. Negative results should be considered in thecontext of a patient's recent exposures, history and thepresence of clinical signs and symptoms consistent withCOVID-19. This test has not been FDA cleared or approved; the test hasbeen authorized by FDA under an Emergency Use Authorization(EUA) for use by laboratories certified under the CLIA thatmeet the requirements to perform moderate, high or waivedcomplexity tests. This test is authorized for use at thePoint of Care (POC), i.e., in patient care settingsoperating under a CLIA Certificate of Waiver, Certificate ofCompliance, or Certificate of Accreditation. This test is only authorized for the duration of thedeclaration that circumstances exist justifying theauthorization of emergency use of in vitro diagnostic testsfor detection and/or diagnosis of COVID-19 under Bqkldhx283(b)(1) of the Act, 21 U.S.C. 360bbb-3(b)(1), unless theauthorization is terminated or revoked sooner. PROTHROMBIN [id number] 15:49:00* Test Item Value Reference Range Interpretation Comme nts PROTHROMBIN TIME PATIENT (te st code = PTP) 10.4 secs 9.8-13.3 N THROMBOPLASTIN TIME [id number] 15:49:00* Test Item Value Reference Range Interpretation Comme nts THROMBOPLASTIN TIME PARTIAL (test code = PTT) 32 secs 26.2-37.2 N URINALYSIS [id number] 15:38:00* Test Item Value Reference Range Interpretation Comme nts UA COLOR (test code = COLU) STRAW YELLOW UA APPEARANCE (test code = APPU) CLEAR CLEAR UA GLUCOSE DIPSTICK (test co de = DGLUU) NEGATIVE NEG UA BILIRUBIN DIPSTICK (test code = BILU) NEGATIVE NEG UA KETONE DIPSTICK (test cod e = KETU) NEGATIVE NEG UA SPECIFIC GRAVITY (test co de = SGU) 1.005 1.001-1.035 N UA BLOOD DIPSTICK (test code = MARISOL) NEG NEG UA PH DIPSTICK (test code = LUKE) 5.0 5-9 UA PROTEIN DIPSTICK (test co de = PROU) NEGATIVE NEG UA UROBILINIOGEN DIPSTICK (test code = URO) NEGATIVE mg/dL NEG UA NITRITE DIPSTICK (test co de = YUDI) NEG NEG UA LEUKOCYTE ESTERASE DIPSTI CK (test code = LEUU) NEG NEG UA WBC (test code = WBCU) 0-2 #/hpf NONE SEEN UA RBC (test code = RBCU) 0-2 #/hpf NONE SEEN UA EPITHELIAL CELLS (test co de = EPIU) RARE #/HPF RARE-FEW UA BACTERIA (test code = BACU) RARE /HPF RARE-FEW UA MUCUS (test code = MUCU) RARE NONE SEEN URINE SAMPLE: CLEAN CATCHCBC W/AUTO [id number] 15:35:00* Test Item Value Reference Range Interpretation Comme nts WHITE BLOOD CELL (test code = WBC) 8.4 K/mm3 6.5-12.3 N RED BLOOD CELL (test code = RBC) 4.73 M/mm3 3.51-4.69 H HEMOGLOBIN (test code = HGB) 14.9 g/dL 10.1-13.8 H HEMATOCRIT (test code = HCT) 42.9 % 32.5-41.8 H MEAN CELL VOLUME (test code = MCV) 90.7 fL 84.6-96.6 N MEAN CELL HGB (test code = MCH) 31.5 pg 27.3-33.9 N MEAN CELL HGB CONCETRATION ( test code = MCHC) 34.7 gm/dL 32.0-34.2 H RED CELL DISTRIBUTION WIDTH (test code = RDW) 11.9 % 12.2-16.3 L PLATELET COUNT (test code = PLT) 357 K/mm3 134-363 N MEAN PLATELET VOLUME (test c ode = MPV) 10.0 fL 9.2-12.7 N NEUTROPHIL % (test code = NT%) 54.8 % 57.9-77.3 L LYMPHOCYTE % (test code = LY%) 34.6 % 14.5-29.7 H MONOCYTE % (test code = MO%) 6.0 % 3.6-10.2 N EOSINOPHIL % (test code = EO%) 3.6 % 0.0-3.0 H BASOPHIL % (test code = BA%) 0.6 % 0.1-0.9 N NEUTROPHIL # (test code = NT#) 4.6 K/mm3 LYMPHOCYTE # (test code = LY#) 2.9 K/mm3 MONOCYTE # (test code = MO#) 0.5 K/mm3 EOSINOPHIL # (test code = EO#) 0.30 K/mm3 BASOPHIL # (test code = BA#) 0.1 K/mm3 RBC MORPHOLOGY REQUIRED (rosa t code = RBCM) NORMAL NORMAL PLATELET MORPHOLOGY REQUIRED (test code = PLTMR) NORMAL NORMAL pap, LB + HR [id number] 00:00:00* Test Item Value Reference Range Interpretation Comme nts LMP date: (test code = LMP date:) 06/05/2021 Pap, liquid-based (test code = Pap, liquid-based) nilm nilm source (liquid-based cytology): (test code = source (liquid-based cytology):) cervical (which includes endocervical) [facility] W/O CONT [id number] 15:25:00 [facility] 1980 Sex: F Patient Name: JIL LEON Unit No: [id number] EXAMS: CPT CODE: [id number] MRI [place] JNT W/[place] [id number] MRI OF THE RIGHT WRIST DIAGNOSIS: 1. There is a 16 mm septated ganglion cyst arising from the volar aspect of the lunatotriquetral articulation and extending through the extrinsic ligaments volar to the triangular fibrocartilage and proximal adjacent to the distal radius. 2. Tenosynovitis of theflexor pollicis longus, the extensor digitorum, the extensor carpi radialis brevis and the extensorcarpi radialis longus. There is no evidence for [...] seen. There is no evidence for carpal malalignment. at 1525 R eported and signed by: Juan Lazo MD CC: Abimael Ricardo MD Technologist: BATOOL PARTIDA MRI Transcribed D/ (1525) [email or web address].L [facility] NAME: JIL LEON [address] PHYS: Abimael Valentin MD : 1980 AGE: 40 SEX: F [place], [place] [address]MLSE NO: [id number] LOC: Y.MRI PHONE #: [phone] EXAM DATE: 05/31/2021 STATUS: REG CLI FAX #:[phone] RAD #: D/C DT PAGE 1 Signed Report Patient Name: JIL LEON Unit No: [id number] EXAMS: CPT CODE: [id number] MRI UP JNT W/[place] [id number] (Continued) Orig Print D/T: S: 05/31/2021 (1528) [facility] NAME: JIL LEON [address] [facility] PHYS: DEYANIRA Catherine RicardoAbimael TAWNY : 1980 AGE: 40 SEX: F [place], [place] [address] LOC: Y.MRI PHONE #: [phone] EXAM DATE: 05/31/2021 STATUS: REG CLI FAX #: [phone] RAD #: D/C DT PAGE 2 Signed Reportpap, LB + HR [id number] 00:00:00* Test Item Value Reference Range Interpretation Comme nts LMP date: (test code = LMP date:) 05/02/2020 Pap, liquid-based (test code = Pap, liquid-based) nilm nilm source (liquid-based cytology): (test code = source (liquid-based cytology):) cervical (which includes endocervical) [facility] Medical Notes Date/Time Note Provider Source 2022-11-29 10:54:00 [id number] bIGCZf9V6Kymcn2k2ZDW2H94SZd2j hRbW7nBAws3IrynOgxVCXMUeg1m4469-31-56N95:54:00 [facility] ([facility])Gynecology Post Prog NoteREPORT#:[id number] REPORT STATUS: SignedREPORT INITIALIZATION DATE:11/29/22 TIME: 105 PATIENT: JIL LEON UNIT #: [id number]#: [id number] ROOM/BED: [facility]-ADOB: [birth year] AGE: 42 SEX: F ATTEND: German Fox AUTHOR: Mik Aparicio MDREPT SERVICE DT/TIME: 11/29/22 1054* ALL edits or amendments must be made on the electronic/computer document * GeneralPost-op: day 1Status post:TLH/right salpingectomy SubjectiveComments:Pt doing well. Pain well controlled. Voiding without difficulty. Ambulated in hallways 4x this AM. Passing flatus. Objective GeneralVS/I O:Last Documented: Result Date Time Pulse Ox 96 11/29 802 B/P 149/94 11/29 802 B/P Mean 112.5 11/29 802 O2 Delivery Room air 11/29 802 Temp 36.2 11/29 802 Pulse 68 11/29 802 Resp 18 11/29 802 O2 Flow Rate 10 11/28 1430 24 hour I O ending at 0700: 11/29 0700 11/28 1900 Intake Total 1800.00 1650.00 Output Total 1100 1050 Balance 700.00 600.00 Intake, IV 1000.00 1600.00 Intake, Oral 800 50 Output, 50 Estimated Blood Loss Output, Urine 1100 1000 PATIENT WEIGHT: Weight (lb): 143Weight (oz): 15.39Weight (kg): 65.300 Physical ExamGeneral appearance: no acute distressWound/incision: Location:4 lsc trochar sites c/d/iAbdomen: non-tender, softExtremities: no calf tenderness, no edema Current MedicationsMedications:Active Meds + DC'd Last 24 HrsAcetaminophen (TYLENOL EXTRA STRENGTH) 1,000 MG Q8H PO Al Hydrox/Mg Hydrox/Simethicone (MYLANTA 30 ML SUSP) 30 ML ASDIR PRN PO Docusate Sodium (DOCUSATE SODIUM 100 MG CAP) 100 MG BID PRN PRN PO Lactated Ringer's (LACTATED RINGERS) 1,000 ML Q10H IV (DC) Ondansetron HCl (ZOFRAN 2 MG/ML 4 MG SYR) 4 MG Q6H PRN PRN IV Oxycodone HCl (Oxycodone HCl 10 MG IR) 10 MG Q4H PRN PRN PO Oxycodone HCl (OXYIR 5MG TAB) 5 MG Q4H PRN PRN PO Simethicone (SIMETHICONE 80 MG TAB) 160 MG Q6H PRN PRN PO Tramadol HCl (ULTRAM 50 MG) 50 MG Q6H PRN PRN PO Fentanyl Citrate (SUBLIMAZE 2 ML) 0 .STK-MED ONE .ROUTE (DC) Hydromorphone HCl (DILAUDID) 0.5 MG PACU Q10MIN PRN PRN IV (DC) Ondansetron HCl (ZOFRAN 2 MG/ML 4 MG SYR) 4 MG PACU ONCE PRN IV (DC) Oxycodone HCl (OXYIR 5MG TAB) 5 MG PACU ONCE PRN PO (DC) Oxycodone HCl (Oxycodone HCl 10 MG IR) 10 MG PACU ONCE PRN PO (DC) Promethazine HCl (PROMETHAZINE HCL 25 MG) 12.5 MG PACU ONCE PRN IM (DC) Bupivacaine HCl (SENSORCAINE PF 0.25% 30 ML) 0 .STK-MED ONE .ROUTE (DC) Fentanyl Citrate (SUBLIMAZE 2 ML) 0 .STK-MED ONE .ROUTE (DC) Midazolam HCl (VERSED 2 MG/2 ML VIAL) 0 .STK-MED ONE .ROUTE (DC) Propofol (DIPRIVAN 10MG/ML 20 ML AMP) 0 .STK-MED ONE .ROUTE (DC) Lidocaine HCl 0 .STK-MED ONE .ROUTE (DC) Rocuronium [place] (ZEMURON 10 MG/ML 5 ML VIAL) 0 .STK-MED ONE .ROUTE (DC) Acetaminophen (TYLENOL EXTRA STRENGTH) 1,000 MG PREOP PO (DC) Cefazolin Sodium (ANCEF 2 GM VIAL) 2 GM PREOP IV (DC) Gabapentin (NEURONTIN 400MG CAP) 400 MG PREOP PO (DC) Lactated Ringer's (LACTATED RINGERS) 1,000 ML Q24H IV (DC) Ondansetron HCl (ZOFRAN 2 MG/ML 4 MG SYR) 4 MG PREOP IV (DC) ResultsFindings/Data:Laboratory Tests 11/28 1412 Chemistry POC Glucose (65 - 110 mg/dL) 108 Diagnosis, Assessment PlanFree Text A P:POD1 s/p TLH/right salpingectomy with 50cc EBL. - Doing well. Meeting all postop goals. VSS- Discharge home. Discharge instructions reviewed, f/u in office in 2 weeks at 1056 RPT #:[id number] OF REPORT PRProgress gzpx9518-71-94L94:54:00F.[id number] able for patient kwpjWZCAMFWCIPXBEX8218-67-67X23:56:57 [facility] 2022-11-28 14:05:00 [id number] inoEuEoALPjukQYnsaj5dLTD6JZlS o3ewaC7fToC4SsO865xntrYaU4/3627-85-48Z67:05:01610 6-[address] [facility] [address] [place], [place] [address] PATIENT NAME: JIL LEON ADMIT DATE: 11/28/22ACCOUNT NO: [id number] ROOM NO: .2618 AGE: 42 SEX: F ADMITTING PHYSICIAN: German Fox MD ATTENDING PHYSICIAN: German Fox MD OPERATION DATE: 11/28/2022 PREOPERATIVE DIAGNOSIS: Menorrhagia. POSTOPERATIVE DIAGNOSIS: Menorrhagia. OPERATIVE PROCEDURE: Total laparoscopic hysterectomy with right salpingectomy. SURGEON: German Fox MD SHOP WORKER: Cristi Santiago. ANESTHESIA: General. COMPLICATIONS: None. ESTIMATED BLOOD LOSS: 50 mL. URINE OUTPUT: 300 mL. INTRAVENOUS FLUIDS: 1200 mL. OPERATIVE FINDINGS: Laparoscopic examination of the abdomen and pelvis revealeda normal-appearing liver edge and appendix. Uterus was small and had several fibroids. Absent left fallopian tube was noted. Descending colon was adherent to the left ovary. Normal-appearing right fallopian tube and ovary were noted. PROCEDURE IN DETAIL: After the patient was identified in the preoperative area and proper consents were ensured, she was taken to the operating suite, where general anesthesia was induced by the Anesthesia Department. The patient was then placed in dorsal lithotomy position in [facility]. She was then prepped and draped in the usual sterile fashion. A timeout procedure was then performed. Next, a weighted speculum was placed in the posterior fourchette of the patient's vagina. The anterior lip of cervix was grasped with a single tooth tenaculum. Uterus was then sounded with uterine sound to a depth of 6 cm. Cervix was then serially dilated with Hanks dilators. Next, stay sutures of 0 Monocryl were placed at the 3 and 9 o'clock positions of the cervix. Next, a small tip ZOHREH manipulator together with the small colpotomizer ring were advanced into place and secured with the stay sutures. A Yates catheter was then placed. As the ZOHREH manipulator was placed, the single tooth tenaculum andweighted speculum were removed. Next, the vaginal occlusive balloon was inflated with normal saline. The patient's legs were then adjusted downward. Outer gloves were removed. Our attention was turned to the anterior abdominal PATIENT NAME: JIL LEON wall. In the infraumbilical fold approximately 2 mL of 0.25% Marcaine were injected subcutaneously. A vertical incision was then made in the infraumbilical fold with a scalpel were passed through the patient's previous incision. The underlying layers of tissue were then dissected using sharp and blunt dissection with Leon scissors as well as the thermospray operator's fingers. Fascia was grasped with 2 short straight O[place] and entered sharply with the Leon scissors. The 5 mm balloon-tipped trocar was then advanced through this incision and the tip balloon was inflated. Next, the abdomen was inflated with CO2 gas until an intraabdominal pressure of 15 mmHg was reached. The patient was then placed in Trendelenburg position. Next, 5 mm ports were placed at the suprapubic region through the patient's previous laparotomy incision in both right and left lower quadrants. These were all placed under direct laparoscopicvisualization with no damage to underlying structures noted. Areas were infiltrated with 0.25% Marcaine subcutaneously and an incision made with scalpelprior to her trocar placement. Next, the abdomen and pelvis was inspected with findings as noted above. Next, we began with the hysterectomy. The left round ligament was cauterized with bipolar cautery at its medial aspect. We then cauterized the left uteroovarian ligament. Next, on the right side, we cauterized the medial aspect of the round ligament followed by the right uteroovarian ligament. Next, the round ligament on the left was transected at its medial aspect with the Harmonic scalpel. The leaf of the broad ligament wasthen taken down anteriorly across the anterior surface of the uterus to the midline. We then transected the left uteroovarian ligament followed by the posterior leaf of the broad ligament across the posterior surface of the uterus. Uterine artery on this side was then skeletonized using sharp and blunt dissection with suction strain technician as well as Harmonic scalpel. Uterine artery on this side was then cauterized with bipolar cautery above the level of colpotomy ring. On the right side, we then proceeded with transection of the round ligament at its medial aspect with Harmonic scalpel. We then took the anterior leaf of the broad ligament down across the anterior surface of the uterus until reaching the previous incision in the midline. The bladder was then dissected away from the lower uterine segment and cervix using the Harmonicscalpel until it was below the level of the colpotomizer ring. We then proceeded to transect the right uteroovarian ligament with Harmonic scalpel. Brina took the posterior leaf of the broad ligament down across the posterior surface of the uterus. The right fallopian tube was then elevated and the mesosalpinx was transected using the Harmonic scalpel. Uterine artery on the right was then skeletonized using sharp and blunt dissection with suction strain technician as well as the Harmonic scalpel. The uterine artery on the right sidewas then cauterized with bipolar cautery above the level of the colpotomizer ring. It was then transected with the Harmonic scalpel. We then proceeded to transect the uterine artery on the left side. The posterior cul-de-sac was thenentered sharply with the Harmonic scalpel at the level of the colpotomizer ring. Colpotomizer ring was then circumferentially incised with the Harmonic scalpel. Once this was completed, the uterus, cervix, and right fallopian tube were freeof any attachments and then delivered through the vagina. Next, a suture of 2-0V-Loc 180 18-inch length was passed through the vaginal cuff and into the abdominal cavity. A laparotomy sponge and a glove were then advanced into the vagina to maintain pneumoperitoneum. Vaginal cuff was then closed in a running continuous fashion using the above stitch. The suture was first placed through the anterior and posterior vaginal cuff with care to incorporate the right uterosacral ligament at the right apex of the vaginal cuff. The rest of the cuff was then closed in a running continuous fashion. Upon reaching the left apex of the cuff, again anterior and posterior vaginal cuff were incorporated together with the uterosacral ligament on the left. At this point, the cuff was PATIENT NAME: JIL LEON closed in its entirety. A back stitch of the suture was then turned to the medial aspect of the cuff and the suture cut. The tip balloon at the lower midline port site was then deflated and the port together with the suture and needle were removed in their entirety. Port was then advanced into place and the tip balloons were inflated. At this point, the pelvis was copiously irrigated with warm normal saline. Pedicles were inspected and noted to be hemostatic. Pedicles were then inspected under low flow and again good hemostasis was noted. All findings were documented with photographs. A postoperative photograph of the vaginal cuff was then taken as well. At this point, CO2 gas was allowed to egress from the patient's abdomen. The right and left lower quadrant ports as well as suprapubic port were then removed and good hemostasis was noted. The infraumbilical port site was then removed. The incisions were then all closed using a running subcuticular suture of 3-0 Monocryl. Dermabond was then applied. The laparotomy sponge and a glove were then removed from the vagina. The vaginal cuff was palpated and noted to be closed in its entirety. At this point, the patient was taken out of dorsal lithotomy position and awakened from anesthesia. She was then taken to recoveryroom awake and in stable condition. Sponge, lap, needle and instrument counts were correct x2 per the operating room staff. Dictated By: German Fox MD Date Dictated: 11/28/2022 14:05:06Date Transcribed: 11/28/2022 14:24:40ALEKSANDRA/WELLINGTON/Herve #: [id number] ID: [id number] by German Fox MD On 12/03/2022 09:50:37 AM at 0950 PATIENT NAME: JIL LEON [id number]:24:00F.[id number] lable for patient ijkpNUWNIPKMMIFTSX0915-22-11S40:51:15 [facility] 2022-11-28 13:49:00 [id number] DWoTqU1UD4DIoPwZvDwALA+DyZvNr jHBNAAK/LemOkKKaRx54tZNsL964008-94-74A90:49:00 [facility] ([facility])Full Op NoteREPORT#:[id number] REPORT STATUS: SignedREPORT INITIALIZATION DATE:11/28/22 TIME: 134 PATIENT: JIL LEON UNIT #: [id number]#: [id number] ROOM/BED:: 82 AGE: 42 SEX: F ATTEND: German Fox MDADM AUTHOR: German Fox MDREPT SERVICE DT/TIME: 11/28/22 1349* ALL edits or amendments must be made on the electronic/computer document * Operative ReportORM Surgeries: Surgery Date and Time: 11/28/2022 1245 Proposed Primary Procedure: HYSTERECTOMY LAPAROSCOPIC TOTAL Start date: 11/28/22Start time: 1231Pre-procedure diagnosis:MenorrhagiaPost-procedure diagnosis:SameProcedures performed:Total Laparoscopic Hysterectomy with Right SalpingectomyTechnique/Procedure:See DictationPrimary Surgeon: German FoxAssistant(s): Cristi Charlesthesia: general anesthesiaOperative findings:Small fibroid uterus, absent left fallopian tube, descending colon adherent to left ovary, normal right fallopian tube and ovary. Normal appearing liver edge and appendix.Complications: noneEstimated blood loss in ml's: 50 ccSpecimens removed/altered: uterus, cervix, right fallopian tubeCultures sent: NoDrain(s)/tube(s): foleyImplant(s): noneFluids:1200 ccUrine output:300 ccApproach: laparoscopicDisposition: PACUCounts: Sponge count: correct Instrument count: correct Needle count: correct Cottonoid count: correctWound class: clean at 1354 RPT #:[id number] OF REPORT OPOperative tcomrj3860-60-87E88:49:00F.[id number] ilable for patient rgycUBYBYQQCOSXCNK5752-54-79Q99:54:16 [facility] 2022-11-28 11:23:00 [id number] vGsuLlcHa8iWvvw2J2HP6+HFU/oix FJOtwaCjPE+al7jLCvt/i/xllr81114-58-66H30:23:29750 6-0728 [facility] [address] [address] PATIENT NAME: JIL LEON ADMIT DATE: 11/28/22ACCOUNT NO: [id number] ROOM NO: AGE: 42 SEX: F ADMITTING PHYSICIAN: ATTENDING PHYSICIAN: German Fox MD ADMISSION DATE: 11/28/2022 09:09:00 HISTORY OF PRESENT ILLNESS: The patient is a 42-year-old 1, para 0-0-1-0 with greater than 1 year history of menorrhagia. The patient reports her cycles occur monthly and last approximately 6 days with the first 2-3 days, being extremely heavy and painful. Her activity is limited by the amount of hermenstrual flow. She has tried oral contraceptives in the past, but is unable totolerate these due to migraine headaches caused by the pills. The patient attempted to undergo endometrial ablation; however, at ablation, the patient wasnoted to have a septate uterus and was noted to have a partial perforation of the uterine septum, therefore could not proceed with ablation. The patient underwent pelvic ultrasound on 07/16/2022 which revealed a uterus measuring 7 x 4.8 x 3.6 cm. Findings were present consistent with adenomyosis. The patient was also noted to have 2 subserosal fibroids, one measuring 3.3 x 2.6 cm, the other 2.4 x 2.1 cm. Her endometrial stripe was noted to be 7.94 mm. Ovaries were noted to be normal bilaterally. The patient did undergo endometrial biopsyat the time of her attempted ablation and was noted to have benign proliferativeendometrium. The patient at this time is desirous of definitive surgical treatment and hysterectomy. PREVIOUS OBSTETRICAL HISTORY: Ectopic x1 treated via laparoscopic surgery in July of 2013. PREVIOUS GYNECOLOGIC HISTORY: As above. Denies any history of abnormal Pap smears, sexually transmitted diseases. Her last Pap smear was June of this year and was within normal limits. PAST MEDICAL HISTORY: Denies except for kidney stones. PREVIOUS SURGICAL HISTORY: Ectopic noted above. Also, with history of carpal tunnel surgery. MEDICATIONS: [place] Thyroid 15 mg, vitamin D. ALLERGIES: NO KNOWN DRUG ALLERGIES. SOCIAL HISTORY: The patient is single. Denies any alcohol, tobacco or drug use. She does vape. FAMILY HISTORY: Significant for hypertension and both grandfathers and cerebrovascular accident. Her mother. REVIEW OF SYSTEMS: Noncontributory. PATIENT NAME: JIL LEON PHYSICAL EXAMINATION:VITAL SIGNS: Height 5 feet 2 inches tall, weight 144 pounds, blood pressure 122/76, respirations 18. She is afebrile.GENERAL: The patient is awake, alert and oriented x3, in no apparent distress.HEENT: Normocephalic, atraumatic. Oral cavity, oropharynx within normal limits.NECK: Supple, without lymphadenopathy or thyromegaly.CHEST: Clear to auscultation bilaterally.CARDIOVASCULAR: Regular rate and rhythm without murmurs, rubs or gallops.ABDOMEN: Benign.EXTREMITIES: No clubbing, cyanosis or edema.PELVIC: Normal external female genitalia are noted. Vagina is normal with normal rugae. Cervix is clean and absent of any lesions. Uterus is small, mobile and nontender. No adnexal masses are noted. LABORATORY DATA: Urine hCG negative. White blood count 8.4, hemoglobin 15, hematocrit 43, platelets 357. PT, PTT 10.4 and 32. Urinalysis is normal. Sodium 139, potassium 4.2, chloride 101, bicarbonate 28, BUN 10, creatinine 0.7,glucose 86, calcium 9.4, AST and ALT 22 and 45. Hepatitis B surface antigen negative. Hepatitis C antibody negative, HIV negative. COVID testing is negative. Urine culture is negative. ASSESSMENT:1. Menorrhagia.2. Probable adenomyosis.3. Desires definitive surgical. PLAN: We will admit the patient to [facility] and proceed with total laparoscopic hysterectomy with bilateral salpingectomy. Risks, benefits and alternatives were reviewed thoroughly with the patient. All questions answered. Consent signed and on chart. Discussed with the patient ovarian conservation with future risk of ovarian cancer versus removal of ovaries with onset of menopausal symptoms and probable need for hormone replacement therapy and its associated risks. The patient at this time desires ovarian conservation. Dictated By: German Fox MD Date Dictated: 11/28/2022 11:23:27Date Transcribed: 11/28/2022 12:18:28ALEKSANDRA/Nacho #: [id number] ID: [id number] by German Fox MD On 11/28/2022 01:55:34 PM at 0155 PATIENT NAME: JIL LEON and physical gpxyttmlpsn9416-69-60X58:18:00F.[id number] VAvailable for patient ptyjSFNIEPKQLGJVOI8033-03-78E37:56:16 [facility] 2022-11-20 15:44:00 [id number] 4CHvQk5XMHRApmFwKNkoN0Hc86YZf JwEXdoz65eab1Zv/afrtenzVlP49961-34-56S09:44:27496 8-0076 [place] [address] PATIENT NAME: JIL LEON ADMIT DATE: ACCOUNT NO: [id number] ROOM NO: AGE: 41 SEX: F ADMITTING PHYSICIAN: ATTENDING PHYSICIAN: German Fox MD Order:[id number] Reason : PRE OP Test Date/Time Stamp:ThuNov 20 2022 15:44:35Blood Pressure : / mmHGVent. Rate : 069 BPM Atrial Rate : 069 BPM P-R Int : 138 ms QRS Dur : 088 ms QT Int : 412 ms P-R-T Axes : 038 025 029 degrees QTc Int : 441 ms Normal sinus rhythmNormal ECGNo previous ECGs availableConfirmed by KAROLINE COWAN MD ([id number]) on 11/20/2022 6:11:45 PM Referred By: German Fox Confirmed by:KAROLINE COWAN MD at 1811 PATIENT NAME: JIL LEON .[id number] AVAvailable for patient krzbYIIDPAMQINJPAT3742-32-47T76:12:09 [facility]
[2023-08-28] MEDS ORDERED: HYDROCODONE/APAP 7.5/325 MG TAB ONE (20:30)
[2023-08-28] MEDS ORDERED: TDAP (DIPHTH,PERTUSS(ACELL),TET VAC) 0.5 ML VIAL IMVAC ONE (20:30)
--- NOTE | 2023-08-28 21:19 | RAD REPORT ---
EXAM DESCRIPTION: RAD - Finger-Thumb Left - 08/28/2023 8:51 pm CLINICAL HISTORY: Finger injury FINDINGS: No fracture or dislocation involving the second digit. A radiopaque foreign body is not seen
[2023-08-28] MEDS ORDERED: BUPIVACAINE 0.5% PF 10 ML VIAL ONE (22:04)
[2023-08-28] MEDS ORDERED: LIDOCAINE 1% 20 ML MDV ONE (22:04)
--- NOTE | 2023-08-28 22:41 | EDPHYS ---
Physician Documentation [facility] Name: Kristie Alarcon Age: 42 yrs Sex: Female : 1980 Arrival Date: 08/28/2023 Time: 20:14 Bed 11 Private MD: ED Physician Jackson Dyson HPI: 08/27 21:00 This 42 yrs old Female presents to ER via Wheelchair with complaints of Laceration - to cp finger and feels like she is going to pass out. 21:00 The patient or guardian reports injury, a laceration, clean. The complaints affect the cp palmar aspect of middle phalanx of left index finger. Context: using kitchen knife patient accidentally stabbed finger. 21:00 Onset: The symptoms/episode began/occurred just prior to arrival. Associated signs and cp symptoms: The patient has no apparent associated signs or symptoms. Severity of symptoms: in the emergency department the symptoms are unchanged, despite home interventions. LVN: 23:26 unknown cm10 Historical: - Allergies: 20:36 No Known Allergies; as6 - PMHx: 20:36 None; as6 - PSHx: 20:36 Cholecystectomy; as6 - Immunization history:: Last tetanus immunization: unknown. - Infectious Disease History:: Denies. - Social history:: Smoking status: Patient denies any tobacco usage or history of. ROS: 21:05 MS/extremity: Positive for decreased range of motion, laceration, pain, of the left cp index finger, 21:05 Constitutional: Negative for fever, cp 21:05 All other systems are negative, Exam: 21:10 Constitutional: The patient appears in no acute distress, alert, awake, non-toxic, well cp developed, well nourished, uncomfortable, 21:10 Head/Face: Normocephalic, atraumatic. cp 21:10 Chest/axilla: Inspection: normal, 21:10 Cardiovascular: Rate: normal, 21:10 Respiratory: the patient does not display signs of respiratory distress, Respirations: normal, no use of accessory muscles, no retractions, labored breathing, is not present, 21:10 Musculoskeletal/extremity: Extremities: grossly normal except: noted in the left index finger: through and through laceration noted rivera side middle phalanx with mild bleeding, marked pain causing reduced mobility upon flexion, mild swelling, no injury noted dorsal side and nail intact, digit neurovascular intact with 2-point discrimination, Vital Signs: 20:40 BP 128 / 92; Pulse 85; Resp 18; Temp 97.8; Pulse Ox 98% ; Weight 58.97 kg; Height 5 ft. as6 2 in. ; 20:40 Body Mass Index 23.78 (58.97 kg, 157.48 cm) as6 Laceration: 22:45 Wound Repair of 2cm ( 0.8in ) through and through laceration to palmar aspect of middle cp phalanx of left index finger. patient reports inability to flex finger due to increased pain. Neuro:Intact distal to wound.. Vascular:Intact distal to wound. Tendon:patitient reports inability to flex finger due to increased pain. Anesthesia: Digital block administered with 6 mls of Lido/Marcaine. Wound prep: Moderate cleansing by me, Wound irrigation by me. Skin closed with 3 4-0 Prolene using interrupted sutures and sterile technique. Dressed with Bacitracin, 4x4's, finger splint. Patient tolerated well. MDM: 20:25 Patient medically screened. cp 22:00 Differential diagnosis: dislocation, open fracture, closed fracture, tendon laceration, cp amputation. 22:40 Data reviewed: vital signs, nurses notes, radiologic studies, plain films. cp 22:40 I considered the following discharge prescriptions or medication management in the emergency department Medications were administered in the Emergency Department. See MAR. Counseling: I had a detailed discussion with the patient and/or guardian regarding the historical points, exam findings, and any diagnostic results supporting the discharge/admit diagnosis, radiology results, the need for outpatient follow up, a hand specialist, to return to the emergency department if symptoms worsen or persist or if there are any questions or concerns that arise at home. Response to treatment: the patient's symptoms have markedly improved after treatment, and as a result, I will discharge patient. 08/27 20:28 Order name: XRAY Finger-Thumb Left; Complete Time: 22:41 cp 08/27 22:00 Order name: Dressing - Wound; Complete Time: 22:27 cp 08/27 22:00 Order name: Gloves, Sterile; Complete Time: 22:27 cp 08/27 22:00 Order name: Setup Suture Tray; Complete Time: 22:27 cp 08/27 22:39 Order name: Splint - Finger; Complete Time: 23:23 cp Administered Medications: 20:33 Drug: Hydrocodone-Acetaminophen PO (7.5 mg-325 mg) 1 tabs PO once; RASS on ADMIN: as6 Combtv4, Very Agttd3, Agttd2, Rstlss1, AlertClm0, Drwsy-1, Lt Sdtn-2, Mod Sdtn-3, Dp Sdtn-4, UnArsble-5 Route: PO; 22:27 Follow up: Response: No adverse reaction cm10 20:34 Not Given (Product Out of Stock): tetanus toxoid,adsorbed0.5 ml IM once; Provide as6 Vaccine Information Statement (VIS). 20:34 Drug: Boostrix Tdap IM 0.5 ml IM once; as a single dose Route: IM; Site: right deltoid; as6 22:27 Follow up: Response: (VIS) Vaccine information sheet provided today. Questions and/or cm10 concerns addressed. VIS edition date: Sep 28, 2020.; No adverse reaction 22:28 Drug: Lidocaine Infiltration (1 %) 5 ml 5 ml Infiltration once; to bedside {Note: Given cm10 by provider..} Volume: 5 ml; Route: Infiltration; 22:28 Drug: Bupivacaine Infiltration (0.5 %) 5 ml 10 ml Infiltration once {Note: Given by cm10 provider..} Volume: 10 ml; Route: Infiltration; Disposition Summary: 08/28/23 22:40 Discharge Ordered Notes: Location: Home cp Problem: new cp Symptoms: have improved cp Condition: Stable cp Diagnosis - Laceration without foreign body of left index finger without damage to nail cp Followup: cp - With: Private Physician - When: 2 - 3 days - Reason: Wound Recheck Discharge Instructions: - Discharge Summary Sheet cp - Laceration Care, Adult cp Forms: - Medication Reconciliation Form cp - Antibiotic Education cp - Prescription Opioid Use cp - Patient Portal Instructions cp - Leadership Thank You Letter cp Prescriptions: - Anaprox DS 550 mg Oral Tablet - take 1 tablet ORAL route every 12 hours As needed; 20 tablet; Refills: 0, cp Product Selection Permitted - Cephalexin 500 mg Oral Capsule - take 1 capsule ORAL route every 8 hours for 10 days; 30 capsule; Refills: 0, cp Product Selection Permitted - Tramadol 50 mg Oral Tablet - take 1 tablet ORAL route every 8 hours as needed; 12 tablet; Refills: 0, cp Product Selection Permitted Addendum: 08/30/2023 04:15 Co-signature as Attending Physician, Jackson Dyson MD I agree with the assessment and c kidd plan of care. Signatures: Dispatcher [employer] [facility] Jackson Dyson MD MD cha Page, Corey, PA PA Aaron Moncada RN RN as6 Quin Crews RN RN cm10 Corrections: (The following items were deleted from the chart) 08/27 20:28 20:28 Finger-Thumb Left+.RAD.RAD.BRZ ordered. [facility] 08/28 18:02 08/27 22:30 Wound Repair of 2cm ( 0.8in ) through and through laceration to palmar cp aspect of middle phalanx of left index finger. patient reports inability to flex finger due to increased pain. Neuro:Intact distal to wound.. Vascular:Intact distal to wound. Tendon:patitient reports inability to flex finger due to increased pain. Anesthesia: Digital block administered with 6 mls of Lido/Marcaine. Wound prep: Moderate cleansing by me, Wound irrigation by me. Skin closed with 3 4-0 Prolene using interrupted sutures and sterile technique. Dressed with Bacitracin, 4x4's, finger splint. Patient tolerated well. cp
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
[2023-08-28 23:36] VITALS: BP 128/92; TEMP 97.8; O2SAT 98
== END 2023-08-28 23:26 | disposition home or self-care (01) ==
LOC: ER 20:14
PROC: 0HQGXZZ Repair Left Hand Skin, External Approach (ICD-10-PCS; principal; 2023-08-28)
DX: S61.211A Laceration without foreign body of left index finger without damage to nail, initial encounter (principal)
CPT/HCPCS: 73140; 96372; 99284; 12001; J2001